=== PATIENT | male | born 1935 | race Caucasian/White ===

== ENCOUNTER 2018-06-16 09:01 | Inpatient (IN) | payer OTHER ==
[~2018-06-16] VITALS: Ht 180.3 cm; Wt 74.8 kg
--- NOTE | 2018-06-16 09:34 | ED CARDIAC/CP/PALPITATIONS ---
History of Present Illness General Chief Complaint: Chest Pain Stated Complaint: CP/SLURRED SPEECH RESOLVED Source: patient, family Exam Limitations: no limitations Vital Signs & Intake/Output Vital Signs & Intake/Output Vital Signs Date Time Temp Pulse Resp B/P B/P Pulse O2 O2 Flow FiO2 Mean Ox Delivery Rate 06/16 1301 98.6 92 18 120/74 95 Room Air 06/16 1033 95 06/16 0954 98 Room Air 06/16 0921 98.0 81 16 168/77 96 Room Air Allergies Coded Allergies: No Known Allergies (06/16/18) Reconcile Medications Albuterol Sulfate (Proair Hfa) 90 MCG HFA.AER.AD 2 PUF INH Q4-6 PRN PRN SHORTNESS OF BREATH (Reported) Aspirin (Ecotrin*) 325 MG TABLET.DR 1 TAB PO DAILY HEART HEALTH (Reported) Atorvastatin Calcium (Lipitor) 80 MG TABLET 1 TAB PO DAILY CHOLESTEROL ( Reported) Cyanocobalamin (Vitamin B-12) 1,000 MCG TABLET 1 TAB PO DAILY VITAMIN SUPPORT (Reported) Furosemide 40 MG TABLET 1 TAB PO BID WATER RETENTION (Reported) Multivitamin (Daily Multiple Vitamin) 1 EACH TABLET 1 TAB PO DAILY VITAMIN SUPPORT (Reported) Sacubitril/Valsartan (Entresto 24 MG-26 MG Tablet) 24 MG-26 MG TABLET 1 TAB PO BID HEART (Reported) Sitagliptin Phosphate (Januvia) 50 MG TABLET 1 TAB PO DAILY DIABETES ( Reported) Sodium Bicarbonate 650 MG TABLET 1 TAB PO BID SUPPLEMENT (Reported) Tiotropium [place] (Spiriva) 18 MCG CAP.W.DEV 1 CAP INH DAILY BREATHING PROBLEMS (Reported) Triage Note: 83M TO ED WITH INDIGESTION IN HIS THROAT THAT WOKE HIM FROM HIS SLEEP. TOOK ROLAIDS WITH MINIMAL RELIEF. DENIES ACTIVE CP OR DISCOMFORT AT THIS TIME. ANXIOUS AND TEARFUL. IS SUPPOSED TO BE ON CPAP AT ALL TIMES BUT NON-COMPLIANT. O2 SAT 96% ON ROOM AIR. STATES IT FEELS TIGHT TO BREATH. DENIES COUGH. TRACE EDEMA TO BLE. +FATIGUE AND WEAKNESS. SPEECH CLEAR AND ORGANIZED , [facility] Triage Nurses Notes Reviewed? yes Onset: Abrupt Duration: day(s): (1), changing over time, continues in ED Timing: single episode today Quality/Severity: moderate Location: central Radiation: no radiation Activities at Onset: activity (BENDING DOWN) Prior Chest Pain/Card Workup: CABG Modifying Factors: Worsens With: movement. Nitro Today/Relief: no nitro taken today Aspirin Today: no aspirin today Associated Symptoms: dizziness, shortness of breath, weakness HPI: 83-year-old male history of hypertension, CKD and hyperlipidemia coronary artery disease diabetes and COPD, status post pacemaker, status post aortic valve replacement, status post CABG presents for evaluation of weakness, dizziness, shortness of breath and chest tightness. Patient reports due to his usual state of health until he went outside to walk his dog. 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 He denies actually lose consciousness. His reports that at this time he also had slurred speech. He reports shortly after this he developed chest tightness and shortness of breath. Symptoms are worse on exertion is also dizzy on exertion. He reports he never had these symptoms before. Usually he is able to walk withOUT any assistance and is independent. He REPEATDLLY says "do not let me I felt like I was going to ". No hemoptysis lower extremity edema recent surgery or recent trauma. No changes in vision. (Grant Farley) Past History Medical History Any Pertinent Medical History? see below for history Surgical History Surgical History: non-contributory Psychosocial History What is your primary language Honduran Family History Hx Contributory? No (Grant Farley) Review of Systems Review of Systems Constitutional: Reports: malaise, weakness. EENTM: Reports: no symptoms. Respiratory: Reports: see HPI, cough, short of breath. Cardiovascular: Reports: see HPI, chest pain. GI: Reports: no symptoms. Genitourinary: Reports: no symptoms. Musculoskeletal: Reports: no symptoms. Skin: Reports: no symptoms. Neurological/Psychological: Reports: see HPI (DIZZY), anxiety. Hematologic/Endocrine: Reports: no symptoms. Immunologic/Allergic: Reports: no symptoms. All Other Systems: Reviewed and Negative (Grant Farley) Physical Exam Physical Exam General Appearance: well developed/nourished, alert, awake, anxious, mild distress, TEARFUL Head: atraumatic, normal appearance Eyes: Bilateral: normal appearance, PERRL, EOMI. Ears, Nose, Throat: normal pharynx, normal ENT inspection, hearing grossly normal Neck: normal inspection, supple, full range of motion Respiratory: chest non-tender, no respiratory distress, decreased breath sounds, wheezing Cardiovascular: regular rate/rhythm, normal peripheral pulses Peripheral Pulses: 2+ radial (R), 2+ radial (L) Gastrointestinal: soft, non-tender Back: normal inspection, normal range of motion, no vertebral tenderness Extremities: normal inspection, normal range of motion, no edema Neurologic/Psych: no motor/sensory deficits, awake, alert, oriented x 3, depressed affect Skin: intact, normal color, warm/dry Lymphatic: no anterior cervical murali Core Measures ACS in differential dx? Yes CVA/TIA Diagnosis No Sepsis Present: No Sepsis Focused Exam Completed? No (Vineet SWANN,Grant) Progress Differential Diagnosis: AMI, aortic dissection, atrial fibrillation, cholecystitis, CHF/pulm edema, hyperkalemia, pancreatitis, pericarditis, pneumonia, pneumothorax, PSVT, pulmonary embolism, PUD/GERD, PVCs/PACs, unstable angina, V-fib/V-Tach, WPW syndrome Plan of Care: Orders Procedure Date/time Status Heart Healthy Diet 06/16 D Active Patient Data 06/16 1430 Active ED Holding Orders 06/16 1417 Active Admit to inpatient 06/16 1417 Active Vital Signs 06/16 1417 Active Code Status 06/16 1417 Active TROPONIN LEVEL 06/16 1245 Complete EKG 06/16 1245 Active Add-on Test (ER Only) 06/16 1052 Active Add-on Test (ER Only) 06/16 0935 Active MAGNESIUM 06/16 0926 Complete LACTIC ACID 06/16 0926 Complete B-TYPE NATRIURETIC PEP (BNP) 06/16 0926 Complete URINALYSIS 06/16 0904 Complete TROPONIN LEVEL 06/16 0904 Complete PARTIAL THROMBOPLASTIN TIME 06/16 0904 Complete PROTHROMBIN TIME 06/16 0904 Complete COMPREHENSIVE METABOLIC PANEL 06/16 0904 Complete CBC WITHOUT DIFFERENTIAL 06/16 0904 Complete EKG 06/16 0904 Active Laboratory Tests 06/16/18 1254: Urine Color YEL, Urine Clarity CLEAR, Urine pH 6.0, Ur Specific [place] 1.020, Urine Protein 100 H, Urine Ketones NEG, Urine Nitrite NEG, Urine Bilirubin NEG, Urine Urobilinogen 0.2, Ur Leukocyte Esterase NEG, Ur Microscopic SEDIMENT EXAMINED, Urine RBC RARE, Urine WBC RARE, Ur Epithelial Cells RARE, Urine Mucus FEW, Urine Hemoglobin NEG, Urine Glucose NEG 06/16/18 1248: Troponin I 0.01 06/16/18 0926: Lactic Acid 0.6 L 06/16/18 0926: Anion Gap 8, Estimated GFR 25 L, BUN/Creatinine Ratio 20.4, Glucose 122 H, Calcium 8.8, Magnesium 2.1, Total Bilirubin 0.5, AST 32, ALT 39, Alkaline Phosphatase 62, Troponin I 0.02, Rgo-S-Ikonkyjpdlk Pept 4100 H, Total Protein 6.5, Albumin 3.6, Globulin 2.9, Albumin/Globulin Ratio 1.2, PT 11.4, INR 1.05, APTT 34, CBC w Diff NO MAN DIFF REQ, RBC 4.08 L, MCV 89.0, MCH 30.0, MCHC 33.7, RDW 14.9 H, MPV 8.3, Gran % 61.8, Lymphocytes % 23.0, Monocytes % 8.8, Eosinophils % 5.9 H, Basophils % 0.5, Absolute Granulocytes 5.4, Absolute Lymphocytes 2.0, Absolute Monocytes 0.8 H, Absolute Eosinophils 0.5, Absolute Basophils 0 Patient is here for evaluation of acute onset dizziness presyncope weakness chest tightness and shortness of breath. He was feeling well until he bent over and he felt symptoms come on suddenly. Patient arrives in significant distress. He states on multiple occasions I felt like I was going to please DOPNT LET me . On exam his vitals are stable. He does have wheezing and decreased breath sounds. DuoNeb was ordered. Labs chest x-ray EKGs ordered. Blood work is not significantly changed. The proBNP is elevated but he has no pulmonary or peripheral edema. Patient is feeling better after DuoNeb. Head CT is negative chest x-ray is clear bowel signs remained stable. A repeat EKG and troponin are negative and unchanged. The initial plan was to have patient go home after the 2 sets however on reevaluation patient reports he is now feeling dizzy and weak again. He was unable to ambulate due to the weakness. When he stood up in the bed he felt he was going to pass out again. Patient will be admitted to the hospital for further evaluation and treatment of weakness chest pain and presyncope. Case discussed with Dr. HUERTA he agrees. Patient will require telemetry, serial labs, serial EKGs, cardiology, DuoNeb's, case management, physical therapy. Diagnostic Imaging: Viewed by Me: Radiology Read. Discussed w/RAD: Radiology Read. Radiology Impression: PATIENT: LANE ESPINAL PRESENT AGE: 83 PATIENT ACCOUNT NO: [id number] : 34 LOCATION: [facility] ([place] ORDERING PHYSICIAN: Grant SWANN SERVICE DATE: 06/16/18 EXAM TYPE: RAD - XRY-CHEST XRAY, TWO VIEWS EXAMINATION: XR CHEST CLINICAL INFORMATION: Chest pain. COMPARISON: 10/27/2007. TECHNIQUE: 2 views of the chest were obtained. FINDINGS: Left subclavian AICD with leads in right atrium, right ventricle, and right coronary sinus. Median sternotomy. AVR, question CABG. Cardiomediastinal silhouette within normal limits and stable when compared to prior. Lungs well expanded and clear with no consolidation or effusion. IMPRESSION: No acute cardiopulmonary findings. DICTATED BY: Spencer Urbina MD DATE/TIME DICTATED:1015 GRADING CLERK:HELENA DATE/TIME TRANSCRIBED:06/16/181015 CONFIDENTIAL, DO NOT COPY WITHOUT APPROPRIATE AUTHORIZATION. <Electronically signed in Other Vendor System> SIGNED BY: Spencer Urbina MD 06/16/18 1020, PATIENT: LANE ESPINAL PRESENT AGE: 83 PATIENT ACCOUNT NO: [id number] : 34 LOCATION: [facility] ([place] ORDERING PHYSICIAN: Grant SWANN SERVICE DATE: 06/16/18 EXAM TYPE: CAT - CT HEAD WO IV CONTRAST EXAMINATION: CT HEAD WITHOUT CONTRAST CLINICAL INFORMATION: Slurred speech and dizziness. Assess for intracranial hemorrhage or mass. COMPARISON: CT scan of the head 04/17/2015. TECHNIQUE: Contiguous axial imaging was performed from the skull base to vertex without intravenous administration of contrast. DLP: 695.42 mGy-cm FINDINGS: There is no evidence of acute intracranial hemorrhage or territorial infarction. No abnormal mass effect or midline shift is seen. Henao to white matter differentiation is well preserved. No extra-axial fluid collections are identified. The ventricles and sulci are commensurately prominent consistent with kiqd-wa-tktikgtl diffuse volume loss. The study redemonstrates sequelae of a chronic infarct in the left precentral gyrus. The sequelae of the high right frontoparietal chronic infarct are unchanged. Low attenuation is noted in the periventricular white matter consistent with chronic microvascular ischemic changes. There are lacunar infarcts versus prominent perivascular spaces in the basal ganglia bilaterally. There is a chronic lacunar infarct in the right thalamus. There are no acute osseous findings. The soft tissues are unremarkable. There are atheromatous calcifications of the cavernous internal carotid arteries. The visualized mastoid air cells are well-aerated. There is mild mucoperiosteal thickening in the bilateral maxillary sinuses. The nasal septum is deviated to the right. IMPRESSION: 1. There are no acute bleeds or territorial infarcts. No masses are demonstrated. 2. There is diffuse volume loss and there are sequelae of chronic bilateral infarcts as described above. DICTATED BY: Sergey George MD DATE/TIME DICTATED:06/16/181037 GRADING CLERK :HELENA DATE/TIME TRANSCRIBED:06/16/181037 CONFIDENTIAL, DO NOT COPY WITHOUT APPROPRIATE AUTHORIZATION. <Electronically signed in Other Vendor System> SIGNED BY: Sergey George MD 06/16/18 1046 Initial ED EKG: AV DUAL PACED COMPLEXES WITH INHIBITION Repeat EKG: unchanged (Grant Farley) Departure Departure Disposition: STILL A PATIENT Condition: Stable Clinical Impression Primary Impression: Weakness Secondary Impressions: Chest pain Qualifiers: Chest pain type: unspecified Qualified Code: R07.9 - Chest pain, unspecified Pre-syncope Referrals: Wilfredo Sarmiento MD (PCP/Family) Departure Forms: Customer Survey General Discharge Information Admission Note Spoke With: Jb Ashraf MD Documentation of Exam: Documentation of any treatments & extenuating circumstances including Concerns Regarding Discharge (functional status, medication knowledge or non-compliance, living conditions, etc.) that warrant an admission rather than observation: [PT IS UNABLE TO AMBULATE, WILL REQUIRE TELE, SERIAL labs serial EKGs physical therapy case management DuoNeb CARDIOLOGY, PULM] (Grant Farley) PA/MAMMAL CONTROL AGENT Co-Sign Statement Statement: ED Attending supervision documentation- [X] I saw and evaluated the patient. I have also reviewed all the pertinent lab results and diagnostic results. I agree with the findings and the plan of care as documented in the PA's/MAMMAL CONTROL AGENT's documentation. [X] I have reviewed the ED Record and agree with the PA's/MAMMAL CONTROL AGENT's documentation. [] Additions or exceptions (if any) to the PAs/MAMMAL CONTROL AGENT's note and plan are summarized below: [Patient to be admitted for increasing weakness and fatigue and unable to care for himself at home. Patient is very unsteady on his feet and is unable to do his own ADLs. Patient would be at high risk if he were discharged.] (Lisandro BOONE,Brooks Hampton) Critical Care Note Critical Care Note Critical Care Time: 30-74 min (Grant Farley)
[2018-06-16 09:44] LABS: ABSOLUTE BASOPHIL COUNT 0 /CUMM (0.0-0.2); ABSOLUTE EOSINOPHIL COUNT 0.5 /CUMM (0.0-0.7); ABSOLUTE GRANULOCYTE CT 5.4 /CUMM (1.4-6.5); ABSOLUTE MONOCYTE COUNT 0.8 /CUMM (0.10-0.60); BASOPHIL % 0.5 % (0.0-2.0); EOSINOPHIL % 5.9 % (0-5); GRANULOCYTE % 61.8 % (42.2-75.2); HEMATOCRIT 36.3 % (42-52); MEAN CORPUSCULAR HGB CONC 33.7 G/DL (33.0-37.0); MEAN PLATELET VOLUME 8.3 FL (7.4-10.4); PLATELET COUNT 187 /CUMM (130-400); RBC DISTRIBUTION WIDTH 14.9 % (11.5-14.5); RED BLOOD CELL CT 4.08 /CUMM (4.70-6.10); WHITE BLOOD CELL COUNT 8.8 /CUMM (4.8-10.8)
[2018-06-16 09:46] LABS: PT 11.4 SEC (9.4-12.5); PTT 34 SEC (25-37)
--- NOTE | 2018-06-16 10:20 | RADIOLOGY REPORT ---
EXAMINATION: XR CHEST CLINICAL INFORMATION: Chest pain. COMPARISON: 10/27/2007. TECHNIQUE: 2 views of the chest were obtained. FINDINGS: Left subclavian AICD with leads in right atrium, right ventricle, and right coronary sinus. Median sternotomy. AVR, question CABG. Cardiomediastinal silhouette within normal limits and stable when compared to prior. Lungs well expanded and clear with no consolidation or effusion. IMPRESSION: No acute cardiopulmonary findings.
[2018-06-16] MEDS ORDERED: ASPIRIN EC325 M2 PO (10:38)
[2018-06-16] MEDS ORDERED: FUROSEMIDE40 M1 PO (10:39)
[2018-06-16] MEDS ORDERED: LIPITOR80 M1 PO (10:39)
[2018-06-16] MEDS ORDERED: ENTRESTO 24 MG1 EACH PO (10:39)
[2018-06-16] MEDS ORDERED: VITAMIN B-121000 MC3 PO (10:40)
[2018-06-16] MEDS ORDERED: JANUVIA50 M1 PO (10:40)
[2018-06-16] MEDS ORDERED: DAILY MULTIPLE1 EACH PO (10:40)
[2018-06-16] MEDS ORDERED: SODIUM BICARBO650 M1 PO (10:41)
[2018-06-16] MEDS ORDERED: PROAIR HFA8.5 GM INH (10:41)
[2018-06-16] MEDS ORDERED: SPIRIVA18 MCG INH (10:41)
--- NOTE | 2018-06-16 10:46 | CT SCAN REPORT ---
EXAMINATION: CT HEAD WITHOUT CONTRAST CLINICAL INFORMATION: Slurred speech and dizziness. Assess for intracranial hemorrhage or mass. COMPARISON: CT scan of the head 04/17/2015. TECHNIQUE: Contiguous axial imaging was performed from the skull base to vertex without intravenous administration of contrast. DLP: 695.42 mGy-cm FINDINGS: There is no evidence of acute intracranial hemorrhage or territorial infarction. No abnormal mass effect or midline shift is seen. Henao to white matter differentiation is well preserved. No extra-axial fluid collections are identified. The ventricles and sulci are commensurately prominent consistent with aewq-ac-gqghctkk diffuse volume loss. The study redemonstrates sequelae of a chronic infarct in the left precentral gyrus. The sequelae of the high right frontoparietal chronic infarct are unchanged. Low attenuation is noted in the periventricular white matter consistent with chronic microvascular ischemic changes. There are lacunar infarcts versus prominent perivascular spaces in the basal ganglia bilaterally. There is a chronic lacunar infarct in the right thalamus. There are no acute osseous findings. The soft tissues are unremarkable. There are atheromatous calcifications of the cavernous internal carotid arteries. The visualized mastoid air cells are well-aerated. There is mild mucoperiosteal thickening in the bilateral maxillary sinuses. The nasal septum is deviated to the right. IMPRESSION: 1. There are no acute bleeds or territorial infarcts. No masses are demonstrated. 2. There is diffuse volume loss and there are sequelae of chronic bilateral infarcts as described above.
--- NOTE | 2018-06-16 15:01 | History & Physical ---
General Information and HPI MD Statement: I have seen and personally examined LANE ESPINAL and documented this H& P. The patient is a 83 year old M who presented with a patient stated chief complaint of [chest pain and slurred speech]. Source of Information: patient, family, old records Exam Limitations: no limitations History of Present Illness: Patient is an 83-year-old male presents for evaluation of weakness, dizziness, blurry vision, fogging in eyes and chest tightness. History of present illness- According to the patient he was completely all right in the morning. He took his dog out for a walk. 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 He went home and woke up his and told that I am going to , I do want to . woke up and felt that his speech is slurred so she brought him here. Patient was also complaining of slight tightness in the chest during this episode but denies for any chest pressure, palpitation, shortness of breath, fall. His first 2 sets of troponins and EKGs were negative. He tried to walk with the nurse in the ED but felt slight dizzy so it was decided to admit him into telemetry for further cardiac evaluation. Past medical history- Hypertension Hyperlipidemia History of multiple CVA, last episode 2months ago - at [facility], f/u MRI showed minor infarct. Coronary disease,status post bovine aortic valve ( 11/03/2006),not on anticoagulation, status post CABG s/p ICD/Pacemaker Chronic kidney disease. Type 2 diabetes. COPD Personal history -lives with the primary, with the , can do all his daily activity without any assistance. Allergies/Medications Allergies: Coded Allergies: No Known Allergies (06/16/18) Home Med list Albuterol Sulfate (Proair Hfa) 90 MCG HFA.AER.AD 2 PUF INH Q4-6 PRN PRN SHORTNESS OF BREATH (Reported) Aspirin (Ecotrin*) 325 MG TABLET.DR 1 TAB PO DAILY HEART HEALTH (Reported) Atorvastatin Calcium (Lipitor) 80 MG TABLET 1 TAB PO DAILY CHOLESTEROL ( Reported) Cyanocobalamin (Vitamin B-12) 1,000 MCG TABLET 1 TAB PO DAILY VITAMIN SUPPORT (Reported) Furosemide 40 MG TABLET 1 TAB PO BID WATER RETENTION (Reported) Multivitamin (Daily Multiple Vitamin) 1 EACH TABLET 1 TAB PO DAILY VITAMIN SUPPORT (Reported) Sacubitril/Valsartan (Entresto 24 MG-26 MG Tablet) 24 MG-26 MG TABLET 1 TAB PO BID HEART (Reported) Sitagliptin Phosphate (Januvia) 50 MG TABLET 1 TAB PO DAILY DIABETES ( Reported) Sodium Bicarbonate 650 MG TABLET 1 TAB PO BID SUPPLEMENT (Reported) Tiotropium [place] (Spiriva) 18 MCG CAP.W.DEV 1 CAP INH DAILY BREATHING PROBLEMS (Reported) Past History Travel History Traveled to [place] past 21 day Yes Medical History Neurological: CVA Cardiovascular: AORTIC VALVE REPLACEMENT PACER Endocrine: diabetes Surgical History Surgical History: non-contributory Review of Systems Review of Systems Constitutional: Denies: no symptoms. Exam & Diagnostic Data Last 24 Hrs of Vital Signs/I&O Vital Signs Date Time Temp Pulse Resp B/P B/P Pulse O2 O2 Flow FiO2 Mean Ox Delivery Rate 06/16 2248 97.7 74 18 138/74 94 Room Air 06/16 1622 97.8 75 18 138/75 98 Room Air 06/16 1301 98.6 92 18 120/74 95 Room Air 06/16 1033 95 06/16 0954 98 Room Air 06/16 0921 98.0 81 16 168/77 96 Room Air Intake & Output 06/17 0800 06/17 0000 06/16 1600 Intake Total 360 0 Output Total Balance 360 0 Intake, Oral 360 0 Number 1 Bowel Movements Patient 77.564 kg 74.843 kg Weight Weight Bed scale Measurement Method Physical Exam General Appearance Alert, Oriented X3, Cooperative, No Acute Distress Neck No JVD Cardiovascular Normal S1, Normal S2, murmure present, left upper chest pacemaker pocket is present with defibrillator Lungs Clear to Auscultation, Normal Air Movement Abdomen Soft, No Tenderness Neurological Normal Speech, Strength at 5/5 X4 Ext, Normal Tone, Sensation Intact Extremities No Clubbing, No Cyanosis, No Edema Vascular Normal Pulses, Pulses Symmetrical Last 24 Hrs of Labs/Jaswinder: Laboratory Tests 06/16/18 1254: Urine Color YEL, Urine Clarity CLEAR, Urine pH 6.0, Ur Specific [place] 1.020, Urine Protein 100 H, Urine Ketones NEG, Urine Nitrite NEG, Urine Bilirubin NEG, Urine Urobilinogen 0.2, Ur Leukocyte Esterase NEG, Ur Microscopic SEDIMENT EXAMINED, Urine RBC RARE, Urine WBC RARE, Ur Epithelial Cells RARE, Urine Mucus FEW, Urine Hemoglobin NEG, Urine Glucose NEG 06/16/18 1248: Troponin I 0.01 06/16/18 0926: Lactic Acid 0.6 L 06/16/18 0926: Anion Gap 8, Estimated GFR 25 L, BUN/Creatinine Ratio 20.4, Glucose 122 H, Calcium 8.8, Magnesium 2.1, Total Bilirubin 0.5, AST 32, ALT 39, Alkaline Phosphatase 62, Troponin I 0.02, Wci-Z-Uwiappckgnu Pept 4100 H, Total Protein 6.5, Albumin 3.6, Globulin 2.9, Albumin/Globulin Ratio 1.2, Free T4 1.22, Total T3 0.77 L, TSH &T3 &Free T4 Intrp 13.100 H, PT 11.4, INR 1.05, APTT 34, CBC w Diff NO MAN DIFF REQ, RBC 4.08 L, MCV 89.0, MCH 30.0, MCHC 33.7, RDW 14.9 H, MPV 8.3, Gran % 61.8, Lymphocytes % 23.0, Monocytes % 8.8, Eosinophils % 5.9 H, Basophils % 0.5, Absolute Granulocytes 5.4, Absolute Lymphocytes 2.0, Absolute Monocytes 0.8 H, Absolute Eosinophils 0.5, Absolute Basophils 0 Diagnostic Data EKG Results Paced rhythum CXR Results No acute cardiopulmonary findings. Assessment/Plan Assessment: Patient is an 83-year-old male presents for evaluation of weakness, dizziness, blurry vision, fogging in eyes and chest tightness. Vital signs at the time of admission-temperature 98.0, pulse 81, respiratory rate 16, blood pressure 168/77, SPO2 96% on room air. Blood workup-hemoglobin 12.2, hematocrit 36.3, platelet 187, granulocyte 61.8, sodium 139, potassium 4.5, chloride 106, carbon dioxide 25, anion gap 8, BUN 51, creatinine 2.5, glucose 122, lactic acid 0.6, calcium 8.8, magnesium 2.1, total bilirubin 0.5, AST 32, ALT 39, alkaline phosphatase 62, troponin I 0.02, proBNP 4100, total protein 6.5, albumin 3.6, TSH 13, free T3 0.77, Assessment and plan- Dizziness and blurry vision - TIA/CVA or Decreased cardiac output * Admit the patient to telemetry floor * Consult cardiology - Dr. Don * Neuro check * follow neurologic rcms * Vital check every shift. * orthostatic vitals * We will continue all home medication * Echo, carotid doppler Hypothyroidism - TSH -17, t3-0.77 * We will discuss to strat patient on thyroid supplementation Diet-heart healthy diet CODE STATUS-DNR/DNI DVT prophylaxis-EMPERATRIZ/heparin As Ranked By This Provider Problem List: 1. Pre-syncope 2. Chest pain Qualifiers Chest pain type: unspecified Qualified Code: R07.9 - Chest pain, unspecified 3. Weakness Core Measures/Misc (07/17) Acute Coronary Syndrome ACS Diagnosis: No Congestive Heart Failure Congestive Heart Failure Diagnosis No Cerebrovascular Accident CVA/TIA Diagnosis: No VTE (View Protocol) VTE Risk Factors Age>40 No Mechanical VTE Prophylaxis d/t N/A MechProphylax Ordered No VTE Pharm Prophylaxis d/t NA PharmProphylax ordered Sepsis (View protocol) Sepsis Present: No If YES complete Sepsis Event Note If YES complete Sepsis Event Note
--- NOTE | 2018-06-16 17:12 | Cons- Neurology ---
General Information and HPI Consulting Request Date of Consult: 06/16/18 Requested By: Jb Ashraf MD Reason for Consult: Possible TIA Source of Information: patient, family Exam Limitations: no limitations History of Present Illness: 83-year-old man with an extensive cardiac history and a known CVA in 2006 at the time of cardiac surgery as well as another CVA found incidentally on CT scans became ill walking his dog this AM. The initial symptom was chest pain followed by blurring of vision in both eyes, lightheadedness leading him to sit down, diaphoresis and slurring of speech lasting around 10 minutes according to family. There were no lateralized complaints such as weakness, clumsiness or numbness on either the left or right side. Prior similar episodes of dizziness have occurred and they were told these were TIAs. Now comfortable, no pain, no further lightheadedness, speech clear. Allergies/Medications Allergies: Coded Allergies: No Known Allergies (06/16/18) Home Med List: Albuterol Sulfate (Proair Hfa) 90 MCG HFA.AER.AD 2 PUF INH Q4-6 PRN PRN SHORTNESS OF BREATH (Reported) Aspirin (Ecotrin*) 325 MG TABLET.DR 1 TAB PO DAILY HEART HEALTH (Reported) Atorvastatin Calcium (Lipitor) 80 MG TABLET 1 TAB PO DAILY CHOLESTEROL ( Reported) Cyanocobalamin (Vitamin B-12) 1,000 MCG TABLET 1 TAB PO DAILY VITAMIN SUPPORT (Reported) Furosemide 40 MG TABLET 1 TAB PO BID WATER RETENTION (Reported) Multivitamin (Daily Multiple Vitamin) 1 EACH TABLET 1 TAB PO DAILY VITAMIN SUPPORT (Reported) Sacubitril/Valsartan (Entresto 24 MG-26 MG Tablet) 24 MG-26 MG TABLET 1 TAB PO BID HEART (Reported) Sitagliptin Phosphate (Januvia) 50 MG TABLET 1 TAB PO DAILY DIABETES ( Reported) Sodium Bicarbonate 650 MG TABLET 1 TAB PO BID SUPPLEMENT (Reported) Tiotropium [place] (Spiriva) 18 MCG CAP.W.DEV 1 CAP INH DAILY BREATHING PROBLEMS (Reported) Current Medications: Current Medications Sig/Deni Start time Last Medication Dose Route Stop Time Status Admin Albuterol Sulfate 3 ML ONCE ONE 06/16 945 DC 06/16 INH 06/16 0946 1032 Ipratropium [place] 2.5 ML ONCE ONE 06/16 945 DC 06/16 INH 08/17 0946 1032 Review of Systems Review of Systems: hard of hearing. otherwise the complete medical ROS is negative or non- contributory Past History Travel History Traveled to [place] past 21 day Yes Medical History Neurological: CVA Cardiovascular: AORTIC VALVE REPLACEMENT PACER Endocrine: diabetes Surgical History Surgical History: non-contributory, Cardiac Psychosocial History Smoking Status: Unknown If Ever Smoked Exam & Diagnostic Data Vital Signs and I&O Vital Signs Date Time Temp Pulse Resp B/P B/P Pulse O2 O2 Flow FiO2 Mean Ox Delivery Rate 06/16 1622 97.8 75 18 138/75 98 Room Air 06/16 1301 98.6 92 18 120/74 95 Room Air 06/16 1033 95 06/16 0954 98 Room Air 06/16 0921 98.0 81 16 168/77 96 Room Air Intake & Output 06/16 1600 06/16 0800 06/16 0000 Intake Total 0 Output Total Balance 0 Intake, Oral 0 Patient 165 lb Weight Physical Exam: Alert, oriented, seech and language clear VFF, EOMI, P4ERRL lower cranial nerves normal except assymetry of NLF at rest, decreased on the right motor power and tone normal DTRs symmetric, no pathological reflexes coordination impaired, dyspraxia of finger control L>R sensory exam symmetric gait not tested Last 48 Hours of Lab Results: Laboratory Tests 06/16 06/16 06/16 1254 1248 0926 Chemistry Lactic Acid (0.7 - 2.1 mmol/L) 0.6 L Troponin I (<0.11 ng/ml) 0.01 Urines Urine Color (YEL,AMB,STR) YEL Urine Clarity (CLEAR) CLEAR Urine pH (5.0 - 8.0) 6.0 Ur Specific [place] (1.001 - 1.035) 1.020 Urine Protein (NEG,<30 MG/DL) 100 H Urine Ketones (NEG) NEG Urine Nitrite (NEG) NEG Urine Bilirubin (NEG) NEG Urine Urobilinogen (0.1 - 1.0 EU/dl) 0.2 Ur Leukocyte Esterase (NEG) NEG Ur Microscopic SEDIMENT EXAMINED Urine RBC (0 - 5 /HPF) RARE Urine WBC (0 - 2 /HPF) RARE Ur Epithelial Cells (NONE,FEW) RARE Urine Mucus (FEW,NONE) FEW Urine Hemoglobin (NEG) NEG Urine Glucose (N MG/DL) NEG 06/16 0926 Chemistry Sodium (137 - 145 mmol/L) 139 Potassium (3.5 - 5.1 mmol/L) 4.5 Chloride (98 - 107 mmol/L) 106 Carbon Dioxide (22 - 30 mmol/L) 25 Anion Gap (5 - 16) 8 BUN (9 - 20 mg/dL) 51 H Creatinine (0.7 - 1.2 mg/dL) 2.5 H Estimated GFR (>60 ml/min) 25 L BUN/Creatinine Ratio (7 - 25 %) 20.4 Glucose (65 - 99 mg/dL) 122 H Calcium (8.4 - 10.2 mg/dL) 8.8 Magnesium (1.6 - 2.3 mg/dL) 2.1 Total Bilirubin (0.2 - 1.3 mg/dL) 0.5 AST (17 - 59 U/L) 32 ALT (21 - 72 U/L) 39 Alkaline Phosphatase (< 127 U/L) 62 Troponin I (<0.11 ng/ml) 0.02 Ezr-X-Bgkklfzmorm Pept (<125 pg/mL) 4100 H Total Protein (6.3 - 8.2 g/dL) 6.5 Albumin (3.5 - 5.0 g/dL) 3.6 Globulin (1.9 - 4.2 gm/dL) 2.9 Albumin/Globulin Ratio (1.1 - 2.2 %) 1.2 Free T4 (0.85 - 1.93 ng/dL) 1.22 Total T3 (0.97 - 1.69 ng/mL) 0.77 L TSH &T3 &Free T4 Intrp (0.27 - 4.20 uIU/mL) 13.100 H Coagulation PT (9.4 - 12.5 SEC) 11.4 INR (0.90 - 1.17) 1.05 APTT (25 - 37 SEC) 34 Hematology CBC w Diff NO MAN DIFF REQ WBC (4.8 - 10.8 /CUMM) 8.8 RBC (4.70 - 6.10 /CUMM) 4.08 L Hgb (14.0 - 18.0 G/DL) 12.2 L Hct (42 - 52 %) 36.3 L MCV (80.0 - 94.0 FL) 89.0 MCH (27.0 - 31.0 PG) 30.0 MCHC (33.0 - 37.0 G/DL) 33.7 RDW (11.5 - 14.5 %) 14.9 H Plt Count (130 - 400 /CUMM) 187 MPV (7.4 - 10.4 FL) 8.3 Gran % (42.2 - 75.2 %) 61.8 Lymphocytes % (20.5 - 51.1 %) 23.0 Monocytes % (1.7 - 9.3 %) 8.8 Eosinophils % (0 - 5 %) 5.9 H Basophils % (0.0 - 2.0 %) 0.5 Absolute Granulocytes (1.4 - 6.5 /CUMM) 5.4 Absolute Lymphocytes (1.2 - 3.4 /CUMM) 2.0 Absolute Monocytes (0.10 - 0.60 /CUMM) 0.8 H Absolute Eosinophils (0.0 - 0.7 /CUMM) 0.5 Absolute Basophils (0.0 - 0.2 /CUMM) 0 Imaging/Other Studies: CT Head: The ventricles and sulci are commensurately prominent consistent with affo-hn-xizktubq diffuse volume loss. The study redemonstrates sequelae of a chronic infarct in the left precentral gyrus. The sequelae of the high right frontoparietal chronic infarct are unchanged. Low attenuation is noted in the periventricular white matter consistent with chronic microvascular ischemic changes. There are lacunar infarcts versus prominent perivascular spaces in the basal ganglia bilaterally. There is a chronic lacunar infarct in the right thalamus. Assessment/Plan Assessment: Doubt this event was a TIA Symptoms suggest Generalized cerebral hypoperfusion with visual blurring, lightheaded dizziness in the setting of chest pain. Patient already on ASA and a Statin Recommendations: cardiac monitoring and consultation carotid dopplers reasonable to assess degree of atherosclerosis echo or other cardiac eval as per recruitment consultant continue current meds for now call back if can be of further assistance Consult Acknowledgment - Thank you for your consult request.
--- NOTE | 2018-06-16 17:26 | Admission Certification ---
Admission Certification Certification Statement - As attending physician, I certify that at the time of - admission, based on clinical presentation, severity of - symptoms, need for further diagnostic testing and - therapeutic interventions, and risk of adverse outcomes - without in-hospital treatment, in my clinical assessment, - this patient requires an acute hospital stay for a minimum - of two nights or longer. I have also considered psychsocial - factors such as support system, advanced age, financial - issues, cognitive issues, and failed out-patient treatments, - past re-admission history, safety of patient, and lack of - compliance as applicable. Specific rationale supporting this admission is: Weakness dizziness chest pain in a patient with extensive coronary artery disease and history of CVAs
--- NOTE | 2018-06-16 17:32 | PN- Att Addend ---
Attending Addendum Attending Brief Note 83-year-old white male recently returned to the [place]. This morning he went out to walk the dog and when he came back he felt a little dizzy and weak spells and some chest pain. He called his who was sleeping for help.Came to the ER beng evaluated had CT of head lab work EKG, had neuro consult with Dr Corrigan, also will be seen by cardiology, monitor. Laboratory Tests 06/16/18 1254: Urine Color YEL, Urine Clarity CLEAR, Urine pH 6.0, Ur Specific [place] 1.020, Urine Protein 100 H, Urine Ketones NEG, Urine Nitrite NEG, Urine Bilirubin NEG, Urine Urobilinogen 0.2, Ur Leukocyte Esterase NEG, Ur Microscopic SEDIMENT EXAMINED, Urine RBC RARE, Urine WBC RARE, Ur Epithelial Cells RARE, Urine Mucus FEW, Urine Hemoglobin NEG, Urine Glucose NEG 06/16/18 1248: Troponin I 0.01 06/16/18 0926: Lactic Acid 0.6 L 06/16/18 0926: Anion Gap 8, Estimated GFR 25 L, BUN/Creatinine Ratio 20.4, Glucose 122 H, Calcium 8.8, Magnesium 2.1, Total Bilirubin 0.5, AST 32, ALT 39, Alkaline Phosphatase 62, Troponin I 0.02, Dpa-G-Hcddvayzxac Pept 4100 H, Total Protein 6.5, Albumin 3.6, Globulin 2.9, Albumin/Globulin Ratio 1.2, Free T4 1.22, Total T3 0.77 L, TSH &T3 &Free T4 Intrp 13.100 H, PT 11.4, INR 1.05, APTT 34, CBC w Diff NO MAN DIFF REQ, RBC 4.08 L, MCV 89.0, MCH 30.0, MCHC 33.7, RDW 14.9 H, MPV 8.3, Gran % 61.8, Lymphocytes % 23.0, Monocytes % 8.8, Eosinophils % 5.9 H, Basophils % 0.5, Absolute Granulocytes 5.4, Absolute Lymphocytes 2.0, Absolute Monocytes 0.8 H, Absolute Eosinophils 0.5, Absolute Basophils 0 Vital Signs Date Time Temp Pulse Resp B/P B/P Pulse O2 O2 Flow FiO2 Mean Ox Delivery Rate 06/16 1622 97.8 75 18 138/75 98 Room Air 06/16 1301 98.6 92 18 120/74 95 Room Air 06/16 1033 95 06/16 0954 98 Room Air Intake & Output 06/16 1600 Intake Total 0 Output Total Balance 0 Intake, Oral 0 Patient 165 lb Weight
[2018-06-16 22:48] VITALS: BP 138/74
[2018-06-17 06:23] VITALS: BP 148/78
--- NOTE | 2018-06-17 08:43 | PN- Housestaff ---
Subjective Follow-up For: Dizziness and weakness Subjective: No acute events overnight, afebrile. Patient states he is feeling much better today like nothing is wrong with me. Patient denies weakness, dizziness, shortness of breath, chest pain, palpitations. Denies fever, night sweats, chills Review of Systems Constitutional: Reports: see HPI. Objective Last 24 Hrs of Vital Signs/I&O Vital Signs Date Time Temp Pulse Resp B/P B/P Pulse O2 O2 Flow FiO2 Mean Ox Delivery Rate 06/17 0623 98.2 75 20 148/78 97 Room Air 06/16 2248 97.7 74 18 138/74 94 Room Air 06/16 1622 97.8 75 18 138/75 98 Room Air 06/16 1301 98.6 92 18 120/74 95 Room Air Intake & Output 06/17 1600 06/17 0800 06/17 0000 Intake Total 200 360 Output Total 600 Balance -400 360 Intake, Oral 200 360 Number 1 Bowel Movements Output, Urine 600 Patient 172 lb Weight Weight Bed scale Measurement Method Physical Exam General Appearance: Alert, Oriented X3, Cooperative Cardiovascular: Regular Rate, Normal S1, Normal S2 Lungs: Clear to Auscultation, Normal Air Movement Abdomen: Normal Bowel Sounds, Soft, No Tenderness Assessment/Plan Assessment: Patient is an 83-year-old male presents for evaluation of weakness, dizziness, blurry vision, fogging in eyes and chest tightness. Assessment and plan- #Right ICA Stenosis: Doppler shows 50-79% stenosis. Could be responsible for patients symptoms -vascular surgery consult #Dizziness and blurry vision - symptoms could be due to generalized cerebral hypoperfusion, symptoms not consistent with TIA/CVA. Patient has history of multiple prior strokes, likely to be embolic in etiology. Patient feels his symptoms have resolved. -Eliquis 2.5mg BID -assess defibrilator for paroxysmal A.fib as cause of hypoperfusion -Echo pending Hypothyroidism - TSH -17, t3-0.77 * will repeat TSH level, as patient is asymptomatic #[place]: creatinine trending down. Possible etiology: hypoperfusion due to cardiac origin vs dehydration. Creatinine is trending down since admission -encourage PO hydration -continue to monitor renal function, if worsens consult nephrology #GERD -Start Omperazole 20mg Diet-heart healthy diet CODE STATUS-DNR/DNI DVT prophylaxis-EMPERATRIZ/heparin Problem List: 1. Weakness Pain Ratin Pain Location: n/a Pain Goal: Remain pain free Pain Plan: tylenol Tomorrow's Labs & Rationales: bep, tsh
--- NOTE | 2018-06-17 11:13 | Patient Discharge Instructions ---
Discharge Instructions General Discharge Information Special Instructions: - Please follow up with your primary care physician within 1-2 weeks of discharge. Inform your primary care physician of this admission to [facility]. - Continue your current medications per discharge instructions. - Please watch for these problems: Fever, Chills, Nausea, Vomiting, Shortness of Breath, Productive Cough, Chest Pain/Discomfort, Abdominal Pain, Active Bleeding or Bloody urine/stool. Diet Continue normal diet: Yes Recommended Diet: Heart Healthy Activity Full Activity/No Limits: Yes Acute Coronary Syndrome Inclusion Criteria At DC or during hospital stay patient has or had the following: ACS DIAGNOSIS No Discharge Core Measures Meds if any: Prescribed or Continued at Discharge Meds if any: NOT Prescribed or Continued at Discharge Congestive Heart Failure Inclusion Criteria At DC or during hospital stay patient has or had the following: CHF DIAGNOSIS No Discharge Core Measures Meds if any: Prescribed or Continued at Discharge Meds if any: NOT Prescribed or Continued at Discharge Cerebrovascular accident Inclusion Criteria At DC or during hospital stay patient has or had the following: CVA/TIA Diagnosis No Discharge Core Measures Meds if any: Prescribed or Continued at Discharge Meds if any: NOT Prescribed or Continued at Discharge Venous thromboembolism Inclusion Criteria VTE Diagnosis No VTE Type NONE VTE Confirmed by (Test) NONE Discharge Core Measures - Per Current guidelines, there needs to be overlap - treatment for the first 5 days of Warfarin therapy. - If discharged on Warfarin prior to 5 days of - overlap therapy, the patient will need to be - assessed for post discharge needs including - *Post discharge parental anticoagulation - *Warfarin and/or parental anticoagulation education - *Follow up date to check INR post discharge At least 5 days overlap therapy as Inpatient No Meds if any: Prescribed or Continued at Discharge Note: Overlap Therapy is Warfarin and Anticoagulant Meds if any: NOT Prescribed or Continued at Discharge
--- NOTE | 2018-06-17 12:18 | PN- Pulmonary ---
Subjective HPI/Critical Care Issues: Doing better this morning Afebrile No further dizziness episode Objective Current Medications: Current Medications Sig/Deni Start time Last Medication Dose Route Stop Time Status Admin Albuterol Sulfate 2 PUF Q4-6 PRN PRN 06/16 2345 AC INH Aspirin Buffered 325 MG DAILY 06/17 900 AC 06/17 PO 0852 Atorvastatin Calcium 80 MG 1700 06/17 1700 AC PO Cyanocobalamin 1,000 MCG DAILY 06/17 900 AC 06/17 PO 0853 Furosemide 40 MG BID 06/17 900 AC 06/17 PO 0852 Multivitamins 1 TAB DAILY 06/17 900 AC 06/17 Therapeutic PO 0853 Sodium Bicarbonate 650 MG BID 06/17 900 AC 06/17 PO 0852 Tiotropium [place] 2 PUF DAILY 06/17 900 AC 06/17 INH 0853 Vital Signs & I&O Last 24 Hrs of Vitals and I&O: Vital Signs Date Time Temp Pulse Resp B/P B/P Pulse O2 O2 Flow FiO2 Mean Ox Delivery Rate 06/17 0623 98.2 75 20 148/78 97 Room Air 06/16 2248 97.7 74 18 138/74 94 Room Air 06/16 1622 97.8 75 18 138/75 98 Room Air 06/16 1301 98.6 92 18 120/74 95 Room Air Intake & Output 06/17 1600 06/17 0800 06/17 0000 Intake Total 200 360 Output Total 600 Balance -400 360 Intake, Oral 200 360 Number 1 Bowel Movements Output, Urine 600 Patient 172 lb Weight Weight Bed scale Measurement Method Impression/Plan Impression/Plan Impression/Plan: Alert, oriented, seech and language clear VFF, EOMI, P4ERRL lower cranial nerves normal except assymetry of NLF at rest, decreased on the right motor power and tone normal DTRs symmetric, no pathological reflexes coordination impaired, dyspraxia of finger control L>R sensory exam symmetric Chest clear Heart S1-S2 is heard Abdominal exam soft bowel sounds are heard IMPRESSION This is a gentleman with previous stroke, no comes in with generalized weakness with signs and symptoms suggestive of cerebral hypoperfusion with visual blurring lightheadedness in the setting of some chest discomfort. Patient is now on aspirin and statin. Atherosclerosis Hypothyroidism History of sleep apnea RECOMMENDATION continue follow-up Neurochecks Carotid ultrasound, telemetry monitoring, echo Recheck TSH and free T4 tomorrow We will follow closely
--- NOTE | 2018-06-17 13:06 | Cons- Cardiology ---
General Information and HPI Consulting Request Date of Consult: 06/17/18 Requested By: Jb Ashraf MD History of Present Illness: Ramos is an 83 year old male with history of hypertension, dyslipidemia, diabetes and coronary artery disease s/p NV. 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 He has also had multiple strokes. Ramos was brought to the ER for evaluation of weakness, dizziness and blurry vision. This was noted while walking his dog after bending over to slat pickler his excrement. Slurred speech was noted by his . He denies chest pain, pressure, tightness, lightheadedness or palpitations but has noted shortness of breath and a worn out feeling with a short walk. Allergies/Medications Allergies: Coded Allergies: No Known Allergies (06/16/18) Home Med List: Albuterol Sulfate (Proair Hfa) 90 MCG HFA.AER.AD 2 PUF INH Q4-6 PRN PRN SHORTNESS OF BREATH (Reported) Aspirin (Ecotrin*) 325 MG TABLET.DR 1 TAB PO DAILY HEART HEALTH (Reported) Atorvastatin Calcium (Lipitor) 80 MG TABLET 1 TAB PO DAILY CHOLESTEROL ( Reported) Cyanocobalamin (Vitamin B-12) 1,000 MCG TABLET 1 TAB PO DAILY VITAMIN SUPPORT (Reported) Furosemide 40 MG TABLET 1 TAB PO BID WATER RETENTION (Reported) Multivitamin (Daily Multiple Vitamin) 1 EACH TABLET 1 TAB PO DAILY VITAMIN SUPPORT (Reported) Sacubitril/Valsartan (Entresto 24 MG-26 MG Tablet) 24 MG-26 MG TABLET 1 TAB PO BID HEART (Reported) Sitagliptin Phosphate (Januvia) 50 MG TABLET 1 TAB PO DAILY DIABETES ( Reported) Sodium Bicarbonate 650 MG TABLET 1 TAB PO BID SUPPLEMENT (Reported) Tiotropium [place] (Spiriva) 18 MCG CAP.W.DEV 1 CAP INH DAILY BREATHING PROBLEMS (Reported) Review of Systems Review of Systems: A 12 point review of systems is remarkable for renal insufficiency and decreased hearing. Past History Travel History Traveled to [place] past 21 day Yes Medical History Blood Transfusion Hx: No Neurological: CVA EENT: [place] Cardiovascular: AORTIC VALVE REPLACEMENT PACER Respiratory: CPAP Renal: KIDNEY ISSUES Endocrine: diabetes Cancer(s): SKIN MELANOMA Surgical History Surgical History: non-contributory, Cardiac Psychosocial History Where Do You Live? Home Smoking Status: Former Smoker Exam & Diagnostic Data Vital Signs and I&O Vital Signs Date Time Temp Pulse Resp B/P B/P Pulse O2 O2 Flow FiO2 Mean Ox Delivery Rate 06/17 0623 98.2 75 20 148/78 97 Room Air 06/16 2248 97.7 74 18 138/74 94 Room Air 06/16 1622 97.8 75 18 138/75 98 Room Air 06/16 1301 98.6 92 18 120/74 95 Room Air Intake & Output 06/17 1600 06/17 0800 06/17 0000 06/16 1600 06/16 0800 06/16 0000 Intake Total 200 360 0 Output Total 600 Balance -400 360 0 Intake, Oral 200 360 0 Number 1 Bowel Movements Output, Urine 600 Patient 172 lb 165 lb Weight Weight Bed scale Measurement Method Physical Exam: General: WD/WN male in NAD; alert and oriented with decreased memory HEENT: NC/AT, PERRL, EOMI Neck: no JVD, no carotid bruit Heart: RRR w/o murmur Lungs: clear bilaterally ABdomen: soft, NT, +ve bowel sounds Extremities: no edema Neuro: right facial droop Assessment/Plan Assessment/Plan * This patient, by report had a major NV 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 I suspect that he has a very low EF but this should be confirmed by obtaining and echocardiogram. * Regardless of whether or not he presents for an acute stroke, this patient has documentation of multiple prior strokes. These are likely embolic in etiology. Consideration needs to be given to a low EF being the nidus for thrombus or atrial fibrillation. It is not known, at present, if this patient had an atrial appendage ligation/resection in the setting of his prior surgery but, even so, this procedure is not known to be 100% reliable. I would begin chronic anticoagulation with Eliquis 2.5mg BID. We will also interogate his defibrillator to assess for paroxysms of atrial fibrillation. Continue low dose aspirin at 81mg daily. * Agree with obtaining carotid ultrasound. * There is no evidence of decompensated CHF or myocardial ischemia at this time but some of his exercise intolerance may be related to a low flow state. Consult Acknowledgment - Thank you for your consult request.
--- NOTE | 2018-06-17 14:02 | PN- Neurology ---
Subjective Subjective: Symptoms have resolved Review of Systems: Tells me there is concern about his pacer defibrillator function which is to be evaluated further Objective Vital Signs and I&Os Vital Signs Date Time Temp Pulse Resp B/P B/P Pulse O2 O2 Flow FiO2 Mean Ox Delivery Rate 06/17 0623 98.2 75 20 148/78 97 Room Air 06/16 2248 97.7 74 18 138/74 94 Room Air 06/16 1622 97.8 75 18 138/75 98 Room Air Intake & Output 06/17 1600 06/17 0806/17 0000 06/16 1600 06/16 0800 06/16 0000 Intake Total 200 360 0 Output Total 600 Balance -400 360 0 Intake, Oral 200 360 0 Number 1 Bowel Movements Output, Urine 600 Patient 172 lb 165 lb Weight Weight Bed scale Measurement Method Physical Exam: Alert, oriented, attentive, no language errors or dysarthria. Very slight lower facial asymmetry which family thinks may be old [place]man equal, no drift Current Medications: Current Medications Sig/Deni Start time Last Medication Dose Route Stop Time Status Admin Albuterol Sulfate 2 PUF Q4-6 PRN PRN 06/16 2345 AC INH Aspirin Buffered 325 MG DAILY 06/17 900 AC 06/17 PO 0852 Atorvastatin Calcium 80 MG 1700 06/17 1700 AC PO Cyanocobalamin 1,000 MCG DAILY 06/17 900 AC 06/17 PO 0853 Furosemide 40 MG BID 06/17 900 AC 06/17 PO 0852 Multivitamins 1 TAB DAILY 06/17 900 AC 06/17 Therapeutic PO 0853 Sodium Bicarbonate 650 MG BID 06/17 900 AC 06/17 PO 0852 Tiotropium [place] 2 PUF DAILY 06/17 900 AC 06/17 INH 0853 Results Last 24 Hours of Lab Results: Laboratory Tests 06/17 0635 Chemistry Sodium (137 - 145 mmol/L) 139 Potassium (3.5 - 5.1 mmol/L) 4.3 Chloride (98 - 107 mmol/L) 111 H Carbon Dioxide (22 - 30 mmol/L) 24 Anion Gap (5 - 16) 4 L BUN (9 - 20 mg/dL) 44 H Creatinine (0.7 - 1.2 mg/dL) 2.2 H Estimated GFR (>60 ml/min) 29 L BUN/Creatinine Ratio (7 - 25 %) 20.0 Magnesium (1.6 - 2.3 mg/dL) 2.1 Troponin I (<0.11 ng/ml) 0.02 Recent Imaging Studies: CT of the head revealed old infarcts, no acute findings Assessment/Plan Assessment: Transient global cerebral ischemia Resolved Further cardiac evaluation underway Plan: Continue current medications unless paroxysmal atrial fibrillation or an alternate cause for cardioembolism found Please call back if further neurologic input is required
[2018-06-17 14:09] VITALS: BP 138/76
--- NOTE | 2018-06-17 15:16 | ULTRASOUND REPORT ---
EXAMINATION: DUPLEX BILATERAL CAROTID ULTRASOUND CLINICAL INFORMATION: Dizziness and weakness COMPARISON: None. TECHNIQUE: Duplex bilateral carotid US was performed using real-time ultrasound and Doppler techniques (integrating B-mode 2D vascular images, Doppler spectral analysis and color flow Doppler imaging). These techniques were utilized to interrogate the extracranial carotid and vertebral arteries bilaterally. The degree of stenosis is based off criteria similar to NASCET. FINDINGS: 1. On the right: There is a hemodynamically significant stenosis correlating to 50-79% diameter reduction of the proximal internal carotid artery. A moderate amount of hyperechoic plaque is noted within the proximal internal and external carotid arteries. The peak systolic and diastolic velocities as measured within the proximal internal carotid artery equals 147 and 24 cm/s respectively. The vertebral artery is patent demonstrating antegrade flow. The right external carotid artery shows no significant stenosis 2. On the left: Plaque is noted within the internal and carotid artery, but velocity measurements are all normal, not suggesting a stenosis of greater than 50% diameter reduction in the left ICA. The vertebral artery is patent demonstrating antegrade flow. The left external carotid artery shows no significant stenosis. IMPRESSION: Hemodynamically significant stenosis in the right internal carotid artery consistent with a 50-79% diameter reduction. On the left, a stenosis of greater than 50% is not present.
[2018-06-17 20:36] VITALS: BP 158/78
[2018-06-18 07:04] VITALS: BP 110/60
--- NOTE | 2018-06-18 12:03 | PN- Pulmonary ---
Subjective HPI/Critical Care Issues: Stable No new issues Objective Current Medications: Current Medications Sig/Deni Start time Last Medication Dose Route Stop Time Status Admin Albuterol Sulfate 2 PUF Q4-6 PRN PRN 06/16 2345 AC INH Apixaban 2.5 MG BID 06/17 2100 AC 06/18 PO 0838 Aspirin Buffered 325 MG DAILY 06/17 0900 AC 06/18 PO 0838 Atorvastatin Calcium 80 MG 1700 06/17 1700 AC 06/17 PO 1722 Cyanocobalamin 1,000 MCG DAILY 06/17 09 AC 06/18 PO 0838 Furosemide 40 MG BID 06/17 09 AC 06/18 PO 0838 Multivitamins 1 TAB DAILY 06/17 09 AC 06/18 Therapeutic PO 0838 Omeprazole 20 MG DAILY AC 06/17 1726 AC 06/18 PO 0634 Sodium Bicarbonate 650 MG BID 06/17 09 AC 06/18 PO 0838 Tiotropium [place] 2 PUF DAILY 06/17 09 AC 06/18 INH 0838 Vital Signs & I&O Last 24 Hrs of Vitals and I&O: Vital Signs Date Time Temp Pulse Resp B/P B/P Pulse O2 O2 Flow FiO2 Mean Ox Delivery Rate 06/18 0704 97.7 75 20 110/60 95 06/17 2036 98.2 77 20 158/78 95 Room Air 06/17 1409 98.4 76 20 138/76 97 Room Air Intake & Output 06/18 1600 06/18 0800 06/18 0000 Intake Total 120 Output Total Balance 120 Intake, Oral 120 Patient 166 lb Weight Laboratory Tests 06/18 06/17 06/16 0615 0635 1254 Chemistry Sodium (137 - 145 mmol/L) 142 139 Potassium (3.5 - 5.1 mmol/L) 5.1 4.3 Chloride (98 - 107 mmol/L) 107 111 H Carbon Dioxide (22 - 30 mmol/L) 28 24 Anion Gap (5 - 16) 7 4 L BUN (9 - 20 mg/dL) 47 H 44 H Creatinine (0.7 - 1.2 mg/dL) 2.3 H 2.2 H Estimated GFR (>60 ml/min) 27 L 29 L BUN/Creatinine Ratio (7 - 25 %) 20.4 20.0 Magnesium (1.6 - 2.3 mg/dL) 2.1 Troponin I (<0.11 ng/ml) 0.02 TSH (0.270 - 4.200 uIU/mL) 18.900 H Urines Urine Color (YEL,AMB,STR) YEL Urine Clarity (CLEAR) CLEAR Urine pH (5.0 - 8.0) 6.0 Ur Specific [place] (1.001 - 1.035) 1.020 Urine Protein (NEG,<30 MG/DL) 100 H Urine Ketones (NEG) NEG Urine Nitrite (NEG) NEG Urine Bilirubin (NEG) NEG Urine Urobilinogen (0.1 - 1.0 EU/dl) 0.2 Ur Leukocyte Esterase (NEG) NEG Ur Microscopic SEDIMENT EXAMINED Urine RBC (0 - 5 /HPF) RARE Urine WBC (0 - 2 /HPF) RARE Ur Epithelial Cells (NONE,FEW) RARE Urine Mucus (FEW,NONE) FEW Urine Hemoglobin (NEG) NEG Urine Glucose (N MG/DL) NEG 06/16 1248 Chemistry Troponin I (<0.11 ng/ml) 0.01 Impression/Plan Impression/Plan Impression/Plan: IMPRESSION: Hemodynamically significant stenosis in the right internal carotid artery consistent with a 50-79% diameter reduction. On the left, a stenosis of greater than 50% is not present. DICTATED BY: Slick Alvarez MD DATE/TIME DICTATED:06/17/181510 Alert, oriented, seech and language clear VFF, EOMI, P4ERRL lower cranial nerves normal except assymetry of NLF at rest, decreased on the right motor power and tone normal DTRs symmetric, no pathological reflexes coordination impaired, dyspraxia of finger control L>R sensory exam symmetric Chest clear Heart S1-S2 is heard Abdominal exam soft bowel sounds are heard IMPRESSION This is a gentleman with previous stroke, no comes in with generalized weakness with signs and symptoms suggestive of cerebral hypoperfusion with visual blurring lightheadedness in the setting of some chest discomfort. Patient is was on aspirin and statin. Atherosclerosis with ihd coronary artery disease s/p [place]. 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 He has also had multiple strokes. Low ef s/avr Hypothyroidism History of sleep apnea Carotid stenosis with stenosis less than 70 percent RECOMMENDATION Continue follow-up/ change to full admission echo / pace maker interogation Add free T4 to his blood work Cont diuresis Will follow closely
--- NOTE | 2018-06-18 13:31 | PN- Cardiology ---
Subjective Subjective: * No complaints. * Interogation of his defibrillator did not show any dysrhythmias or high rate events Objective Vital Signs and I&Os Vital Signs Date Time Temp Pulse Resp B/P B/P Pulse O2 O2 Flow FiO2 Mean Ox Delivery Rate 06/18 0704 97.7 75 20 110/60 95 06/17 2036 98.2 77 20 158/78 95 Room Air 06/17 1409 98.4 76 20 138/76 97 Room Air Intake & Output 06/18 1600 06/18 0806/18 0000 06/17 1600 06/17 0800 06/17 0000 Intake Total 120 700 200 360 Output Total 400 600 Balance 120 300 -400 360 Intake, Oral 120 700 200 360 Number 1 Bowel Movements Output, Urine 400 600 Patient 166 lb 172 lb Weight Weight Bed scale Measurement Method Physical Exam: General: WD/WN male in NAD; alert and oriented with decreased memory HEENT: NC/AT, PERRL, EOMI Neck: no JVD, no carotid bruit Heart: RRR w/o murmur Lungs: clear bilaterally ABdomen: soft, NT, +ve bowel sounds Extremities: no edema Neuro: right facial droop Assessment/Plan Assessment/Plan * This patient, by report had a major FL 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 I suspect that he has a very low EF but this should be confirmed by obtaining and echocardiogram. * Regardless of whether or not he presents for an acute stroke, this patient has documentation of multiple prior strokes. These are likely embolic in etiology. Consideration needs to be given to a low EF being the nidus for thrombus or atrial fibrillation. It is not known, at present, if this patient had an atrial appendage ligation/resection in the setting of his prior surgery but, even so, this procedure is not known to be 100% reliable. I would begin chronic anticoagulation with Eliquis 2.5mg BID. Interogate his defibrillator to assess for paroxysms of atrial fibrillation did not show this dysrhythmia. Continue low dose aspirin at 81mg daily. * There is no evidence of decompensated CHF or myocardial ischemia at this time but some of his exercise intolerance may be related to a low flow state. Continue telemetry? Yes
[2018-06-18 15:02] VITALS: BP 112/64
[2018-06-18 22:18] VITALS: BP 110/54
--- NOTE | 2018-06-19 07:07 | PN- Housestaff ---
Subjective Follow-up For: TIA Complaints: no complaints Tele-Events Since Last Visit: no significant tele events notes, except for PVc Subjective: Patient was examined bed side and said he was doing fine Review of Systems Constitutional: Reports: see HPI. Denies: no symptoms. Cardiovascular: Reports: no symptoms. Respiratory: Reports: no symptoms. Gastrointestinal: Reports: no symptoms. Genitourinary: Reports: no symptoms. Musculoskeletal: Reports: no symptoms. Objective Last 24 Hrs of Vital Signs/I&O Vital Signs Date Time Temp Pulse Resp B/P B/P Pulse O2 O2 Flow FiO2 Mean Ox Delivery Rate 06/19 1440 98.4 80 20 132/76 94 06/19 0734 97.7 88 18 102/64 95 Room Air Physical Exam General Appearance: Alert, Oriented X3, Cooperative, No Acute Distress Cardiovascular: Regular Rate, No Murmurs Lungs: Clear to Auscultation, Normal Air Movement Abdomen: Normal Bowel Sounds, Soft, No Tenderness, No Hepatospenomegaly, No Masses Neurological: Normal Speech, Strength at 5/5 X4 Ext, Normal Tone, Sensation Intact Extremities: No Clubbing, No Cyanosis, No Edema, Normal Pulses, No Tenderness/ Swelling Assessment/Plan Assessment: Blood workup-hemoglobin 12.2, hematocrit 36.3, platelet 187, granulocyte 61.8, sodium 139, potassium 4.5, chloride 106, carbon dioxide 25, anion gap 8, BUN 51, creatinine 2.5, glucose 122, lactic acid 0.6, calcium 8.8, magnesium 2.1, total bilirubin 0.5, AST 32, ALT 39, alkaline phosphatase 62, troponin I 0.02, proBNP 4100, total protein 6.5, albumin 3.6, TSH 13, free T3 0.77, Assessment and plan- #Right ICA Stenosis: Doppler shows 50-79% stenosis. Could be responsible for patients symptoms #Dizziness and blurry vision - symptoms could be due to generalized cerebral hypoperfusion, symptoms not consistent with TIA/CVA. Patient has history of multiple prior strokes, likely to be embolic in etiology. Patient feels his symptoms have resolved. -Eliquis 2.5mg BID Pacemaker Device interrogation shows no evidence of atrial fibrillation. The patient's prior device interrogations have also never showed any evidence of atrial fibrillation. Hypothyroidism - TSH -17, t3-0.77, follow up on Thyroid profile #[place]: creatinine trending down. Possible etiology: hypoperfusion due to cardiac origin vs dehydration. Creatinine is trending down since admission -encourage PO hydration -continue to monitor renal function, if worsens consult nephrology #GERD -Start Omperazole 20mg Diet-heart healthy diet CODE STATUS-DNR/DNI Problem List: 1. Pre-syncope 2. Weakness Pain Ratin Pain Location: none Pain Goal: Remain pain free Pain Plan: none Tomorrow's Labs & Rationales: none
[2018-06-19 07:34] VITALS: BP 102/64
--- NOTE | 2018-06-19 10:24 | PN- Att Addend ---
Attending Addendum Attending Brief Note No new issues over the weekend. Patient looks better is at the bedside. The pacemaker was interrogated and seems to be working okay. Vital signs are stable no fever. No major changes on physical examination. Depending on cardiology's input today we may be able to start disposition plans.. Intake & Output 06/19 04006/18 1600 06/18 0400 06/17 1600 06/17 0400 Intake Total 120 120 400 120 900 360 Output Total 453 164 6536 Balance -280 120 -350 120 -100 360 Intake, Oral 120 120 400 120 900 360 Number 1 Bowel Movements Output, Urine 153 378 8226 Patient 165 lb 166 lb 172 lb Weight Weight Bed scale Measurement Method Laboratory Tests 06/18/18 0615: Anion Gap 7, Estimated GFR 27 L, BUN/Creatinine Ratio 20.4, TSH 18.900 H, Free T4 1.00 06/17/18 0635: Anion Gap 4 L, Estimated GFR 29 L, BUN/Creatinine Ratio 20.0, Magnesium 2.1, Troponin I 0.02 06/16/18 1254: Urine Color YEL, Urine Clarity CLEAR, Urine pH 6.0, Ur Specific [place] 1.020, Urine Protein 100 H, Urine Ketones NEG, Urine Nitrite NEG, Urine Bilirubin NEG, Urine Urobilinogen 0.2, Ur Leukocyte Esterase NEG, Ur Microscopic SEDIMENT EXAMINED, Urine RBC RARE, Urine WBC RARE, Ur Epithelial Cells RARE, Urine Mucus FEW, Urine Hemoglobin NEG, Urine Glucose NEG 06/16/18 1248: Troponin I 0.01 Vital Signs Date Time Temp Pulse Resp B/P B/P Pulse O2 O2 Flow FiO2 Mean Ox Delivery Rate 06/19 0734 97.7 88 18 102/64 95 Room Air 06/18 2218 98.6 76 20 110/54 94 06/18 1502 98.4 75 20 112/64 94 Room Air
--- NOTE | 2018-06-19 11:05 | ECHOCARDIOGRAM REPORT ---
LANE [facility]IN[facility] Age: 83 : 1935 Gender: M Exam Date: 06/18/2018 10:44 Exam Location: 1 [address] Ht (in): 71 Wt (lb): 170 BSA: 1.97 BP: 110 / 60 Ordering Physician: Roxana Naqvi MD Referring Physician: Riri Don MD Technologist: Roxanne Kirkland [facility] Room Number: 180-02 Indications: Chest pain Rhythm: Sinus Technical Quality: Fair FINDINGS Left Ventricle Normal size left ventricle. Hypokinetic inferior wall. Hypokinetic posterior wall. Mildly abnormal left ventricular ejection fraction estimated at 35-40%. Right Ventricle Normal right ventricular size and function. Right Atrium Normal right atrial size. Left Atrium Mild to moderate left atrial dilatation. Mitral Valve Mitral valve thickened. Moderate mitral annular calcification. Trace to mild mitral regurgitation. Aortic Valve Normally functioning prosthetic aortic valve. Bioprosthetic aortic valve. Tricuspid Valve Tricuspid valve not well visualized, grossly normal. Mild tricuspid regurgitation. Right ventricular systolic pressure estimated at 34 mmHg. Pulmonic Valve Structurally normal pulmonic valve. Mild pulmonic regurgitation. Pericardium No pericardial effusion. Great Vessels Normal size aortic root and proximal ascending aorta. CONCLUSIONS 1. A normally functioning bioprosthetic aortic valve is present 2. Mitral leaflet thickening is present with mild to moderate anular calcification and minimal to mild mitral insufficiency with mild to moderata left atrial enlargement. 3. There is no pericardial fluid detected. 4. The left ventricular chamber size is normal. There is hypokinesia of the inferoposterior, inferolateral and inferoapical segments with an ejection fraction of 35-40%. 5. Mild tricuspid and pulmonic insufficiency are present with no evidence of pulmonary hypertension. 6. Pacemaker wires are present in the right heart chambers. Riri Don M.D. (Electronically Signed) Final Date: 19 June 2018 11:05 MEASUREMENTS (Male / Female) Normal Values 2D ECHO LV Diastolic Diameter PLAX 4.9 cm 4.2 - 5.9 / 3.9 - 5.3 cm LV Systolic Diameter PLAX 3.9 cm 2.1 - 4.0 cm LV Fractional Shortening PLAX 20.4 % 25 - 46 % LV Ejection Fraction 2D Teich 41.6 % IVS Diastolic Thickness 1.2 cm LVPW Diastolic Thickness 1.2 cm LV Relative Wall Thickness 0.5 RV Internal Dim ED PLAX 2.6 cm 1.9 - 3.8 cm LVOT Diameter 2.0 cm Aortic Root Diameter 3.3 cm LA Systolic Diameter LX 5.0 cm 3.0 - 4.0 / 2.7 - 3.8 cm LA Volume 53.0 cm 18 - 58 / 22 - 52 cm DOPPLER AV Peak Velocity 229.0 cm/s AV Peak Gradient 21.0 mmHg AV Mean Velocity 167.0 cm/s AV Mean Gradient 13.0 mmHg AV Velocity Time Integral 46.5 cm LVOT Peak Velocity 93.2 cm/s LVOT Peak Gradient 3.5 mmHg LVOT Mean Velocity 63.5 cm/s LVOT Mean Gradient 2.0 mmHg LVOT Velocity Time Integral 18.3 cm LVOT Stroke Volume 57.5 cm AV Area Cont Eq vti 1.2 cm AV Area Cont Eq pk 1.3 cm MV Peak Velocity 112.0 cm/s MV Peak Gradient 5.0 mmHg MV Mean Velocity 59.4 cm/s MV Mean Gradient 2.0 mmHg Mitral E Point Velocity 75.0 cm/s Mitral A Point Velocity 112.0 cm/s Mitral E to A Ratio 0.7 MV PHT Velocity 86.0 cm/s MV Deceleration [place] 224.0 cm/s MV Pressure Half Time 115.2 ms MV Area PHT 1.9 cm MV Deceleration Time 235.0 ms TR Peak Velocity 252.0 cm/s TR Peak Gradient 25.4 mmHg Right Atrial Pressure 10.0 mmHg Pulmonary Artery Systolic Pressure 35.4 mmHg Right Ventricular Systolic Pressure 35.4 mmHg PV Peak Velocity 139.0 cm/s PV Peak Gradient 7.7 mmHg PV Mean Velocity 91.5 cm/s PV Mean Gradient 4.0 mmHg PV Velocity Time Integral 26.6 cm LV E' Lateral Velocity 13.2 cm/s Mitral E to LV E' Lateral Ratio 5.7 LV E' Septal Velocity 4.6 cm/s Mitral E to LV E' Septal Ratio 16.4
--- NOTE | 2018-06-19 11:30 | PN- Cardiology ---
Subjective Subjective: The patient appears to be doing well today. He denies any symptoms whatsoever. He notes that he has been out of bed and has had no further lightheadedness or dizziness. Spirits good today. Objective Vital Signs and I&Os Vital Signs Date Time Temp Pulse Resp B/P B/P Pulse O2 O2 Flow FiO2 Mean Ox Delivery Rate 06/19 0734 97.7 88 18 102/64 95 Room Air 06/18 2218 98.6 76 20 110/54 94 06/18 1502 98.4 75 20 112/64 94 Room Air Intake & Output 06/19 1600 06/19 0806/19 0000 06/18 1600 06/18 0806/18 0000 Intake Total 120 120 400 120 Output Total 400 750 Balance -280 120 -350 120 Intake, Oral 120 120 400 120 Output, Urine 400 750 Patient 165 lb 166 lb Weight Physical Exam: General Appearance: well developed/nourished, elderly white male, alert, awake, oriented Head: normal HEENT: Normal Neck: supple, JVP normal, carotid upstrokes normal bilaterally, no audible bruit , no masses or thyromegaly Respiratory: chest non-tender, clear to auscultation and percussion bilaterally Cardiovascular: regular rate/rhythm, normal S1, S2, 1-2/6 systolic murmur Abdomen: normal bowel sounds, soft, non-tender Extremities: normal inspection, no edema Vascular: Pulses are 2+ and equal bilaterally Neurologic: Grossly normal/nonfocal Current Medications: Current Medications Sig/Deni Start time Last Medication Dose Route Stop Time Status Admin Albuterol Sulfate 2 PUF Q4-6 PRN PRN 06/16 2345 AC INH Apixaban 2.5 MG BID 06/17 2100 AC 06/19 PO 0848 Aspirin 0 .STK-MED ONE 06/19 0904 DC PO Aspirin Buffered 325 MG DAILY 06/17 09 AC 06/19 PO 0848 Atorvastatin Calcium 80 MG 1700 06/17 1700 AC 06/18 PO 1524 Cyanocobalamin 1,000 MCG DAILY 06/17 09 AC 06/19 PO 0848 Furosemide 40 MG BID 06/17 09 AC 06/19 PO 0848 Multivitamins 1 TAB DAILY 06/17 09 AC 06/19 Therapeutic PO 0848 Omeprazole 20 MG DAILY AC 06/17 1726 AC 06/19 PO 0537 Sodium Bicarbonate 650 MG BID 06/17 900 AC 06/19 PO 0848 Tiotropium [place] 2 PUF DAILY 06/17 900 AC 06/19 INH 0848 Results Last 48 Hrs of Labs/Mics: Laboratory Tests 06/18/18614: Anion Gap 7, Estimated GFR 27 L, BUN/Creatinine Ratio 20.4, TSH 18.900 H, Free T4 1.00 Assessment/Plan Assessment/Plan Assessment: 1. Dizziness/presyncope 2. Ischemic cardiomyopathy 3. History of coronary artery disease, status post bypass surgery 4. Bioprosthetic aortic valve-function normally 5. History of prior stroke 6. Bilateral carotid artery plaque; more pronounced on the right side 7. Hypothyroidism Recommendations: -The patient appears to be doing well. -Ambulate with monitoring of blood pressure and heart rate -Device interrogation shows no evidence of atrial fibrillation. The patient's prior device interrogations have also never showed any evidence of atrial fibrillation. In view of this finding, and in view of the fact that he has known bilateral carotid disease, I do not see any reason to anticoagulate the patient at the present time. -Continue regular medication regimen - Continue telemetry? No
--- NOTE | 2018-06-19 14:14 | Discharge Summary ---
Visit Information Visit Dates Admission Date: 06/16/18 Discharge Date: 06/19/18 Hospital Course Course Attending Physician: Tarun Martin MD Primary Care Physician: Mario BOONE,Tarun Hospital Course: Patient is an 83-year-old male presents for evaluation of weakness, dizziness, blurry vision, fogging in eyes and chest tightness. Vital signs at the time of admission-temperature 98.0, pulse 81, respiratory rate 16, blood pressure 168/77, SPO2 96% on room air. Blood workup-hemoglobin 12.2, hematocrit 36.3, platelet 187, granulocyte 61.8, sodium 139, potassium 4.5, chloride 106, carbon dioxide 25, anion gap 8, BUN 51, creatinine 2.5, glucose 122, lactic acid 0.6, calcium 8.8, magnesium 2.1, total bilirubin 0.5, AST 32, ALT 39, alkaline phosphatase 62, troponin I 0.02, proBNP 4100, total protein 6.5, albumin 3.6, TSH 13, free T3 0.77, Assessment and plan- #Right ICA Stenosis: Doppler shows 50-79% stenosis. Could be responsible for patients symptoms #Dizziness and blurry vision - symptoms could be due to generalized cerebral hypoperfusion, symptoms not consistent with TIA/CVA. Patient has history of multiple prior strokes, likely to be embolic in etiology. Patient feels his symptoms have resolved. -Eliquis 2.5mg BID Pacemaker Device interrogation shows no evidence of atrial fibrillation. The patient's prior device interrogations have also never showed any evidence of atrial fibrillation. Hypothyroidism - TSH -17, t3-0.77, follow up on Thyroid profile #[place]: creatinine trending down. Possible etiology: hypoperfusion due to cardiac origin vs dehydration. Creatinine is trending down since admission -encourage PO hydration -continue to monitor renal function, if worsens consult nephrology #GERD -Start Omperazole 20mg Diet-heart healthy diet CODE STATUS-DNR/DNI Allergies: Coded Allergies: No Known Allergies (06/16/18) Disposition Summary Disposition Principal Diagnosis: TIA Additional Diagnosis: Atrial fibrillation [place] Discharge Disposition: home or self care Discharge Instructions General Discharge Information Code Status: Do Not Resucitate/Intubat Patient's Diet: regular, heart healthy Patient's Activity: as tolerated Follow-Up Instructions/Appts: follow up with media developer in 1 week follow up with PCP in 1 week Medications at Discharge Discharge Medications: Continue taking these medications: Aspirin (Ecotrin*) 325 MG TABLET.DR 1 Tablet ORAL DAILY Comments: Last Taken:06/19/18 Time:0900 Atorvastatin Calcium (Lipitor) 80 MG TABLET 1 Tablet ORAL DAILY Comments: Last Taken:06/18/18 Time:5PM Sacubitril/Valsartan (Entresto 24 MG-26 MG Tablet) 24 MG-26 MG TABLET 1 Tablet ORAL TWICE DAILY Furosemide (Furosemide) 40 MG TABLET 1 Tablet ORAL TWICE DAILY Comments: Last Taken:06/19/18 Time:0900 Sitagliptin Phosphate (Januvia) 50 MG TABLET 1 Tablet ORAL DAILY Multivitamin (Daily Multiple Vitamin) 1 EACH TABLET 1 Tablet ORAL DAILY Comments: Last Taken:06/19/18 Time:0900 Cyanocobalamin (Vitamin B-12) 1,000 MCG TABLET 1 Tablet ORAL DAILY Comments: Last Taken:06/19/18 Time:0900 Sodium Bicarbonate (Sodium Bicarbonate) 650 MG TABLET 1 Tablet ORAL TWICE DAILY Comments: Last Taken:06/19/18 Time:0900 Tiotropium [place] (Spiriva) 18 MCG CAP.W.DEV 1 Capsule Inhale through mouth DAILY Comments: Last Taken:06/19/18 Time:0900 Albuterol Sulfate (Proair Hfa) 90 MCG HFA.AER.AD 2 Puff Inhale through mouth EVERY 4-6 HOURS NEEDED as needed for SHORTNESS OF BREATH Copies To: Meenu BOONE,Buck Noel; Romy BOONE,Paul [place]; Mario BOONE,Robert Morton MD PHD, Gilbert York
[2018-06-19 14:40] VITALS: BP 132/76
== END 2018-06-19 14:40 | DRG 68 ==
LOC: ERH 09:01 → 1NO 14:17 → ERHI 14:17 → EDBEDREQSVC 15:17 → ENRESERV 16:24 → ENTRNSPT 17:13 → EDTRNSPT 17:25 → EDTRNSPTSTS 17:25 → CMPTRNSPT 17:47 → 1NO 18:10 → ENTRNSPT 06-19 14:12 → EDTRNSPTSTS 06-19 14:18 → EDTRNSPT 06-19 14:18 → CMPTRNSPT 06-19 14:26 → 1NO 06-19 14:40
PROVIDERS: Physician Assistant Medical
DX: I65.21 Occlusion and stenosis of right carotid artery (principal); J44.9 Chronic obstructive pulmonary disease, unspecified; I25.5 Ischemic cardiomyopathy; E11.22 Type 2 diabetes mellitus with diabetic chronic kidney disease; Z95.1 Presence of aortocoronary bypass graft; I12.9 Hypertensive chronic kidney disease with stage 1 through stage 4 chronic kidney disease, or unspecified chronic kidney disease; N18.9 Chronic kidney disease, unspecified; E78.5 Hyperlipidemia, unspecified; I25.10 Atherosclerotic heart disease of native coronary artery without angina pectoris; E03.9 Hypothyroidism, unspecified; Z66 Do not resuscitate; I25.2 Old myocardial infarction; G47.30 Sleep apnea, unspecified; K21.9 Gastro-esophageal reflux disease without esophagitis; Z85.820 Personal history of malignant melanoma of skin; Z79.84 Long term (current) use of oral hypoglycemic drugs; Z86.73 Personal history of transient ischemic attack (TIA), and cerebral infarction without residual deficits; Z95.3 Presence of xenogenic heart valve; Z95.0 Presence of cardiac pacemaker
CPT/HCPCS: 1NSP; 36415; 36592; 71046; 81001; 82436; 93005; 93010; 93306; J1644; J3490

== ENCOUNTER 2018-07-18 12:32 | Inpatient (IN) | payer OTHER ==
[~2018-07-18] VITALS: Ht 180.3 cm; Wt 78.9 kg
[~2018-07-18 12:32] MED LIST: ASPIRIN EC325 M2 PO; DAILY MULTIPLE1 EACH PO; ENTRESTO 24 MG1 EACH PO; FUROSEMIDE40 M1 PO; JANUVIA50 M1 PO; LIPITOR80 M1 PO; PROAIR HFA8.5 GM INH; SODIUM BICARBO650 M1 PO; SPIRIVA18 MCG INH; VITAMIN B-121000 MC3 PO
[2018-07-18 13:08] LABS: ABSOLUTE BASOPHIL COUNT 0 /CUMM (0.0-0.2); ABSOLUTE EOSINOPHIL COUNT 0.4 /CUMM (0.0-0.7); ABSOLUTE GRANULOCYTE CT 4.8 /CUMM (1.4-6.5); ABSOLUTE LYMPH COUNT 1.3 /CUMM (1.2-3.4); ABSOLUTE MONOCYTE COUNT 0.6 /CUMM (0.10-0.60); BASOPHIL % 0.3 % (0.0-2.0); EOSINOPHIL % 6.1 % (0-5); HEMATOCRIT 34.3 % (42-52); MEAN CORPUSCULAR HGB 29.8 PG (27.0-31.0); MEAN CORPUSCULAR HGB CONC 32.8 G/DL (33.0-37.0); MEAN CORPUSCULAR VOLUME 90.6 FL (80.0-94.0); MEAN PLATELET VOLUME 8.4 FL (7.4-10.4); PLATELET COUNT 163 /CUMM (130-400); RBC DISTRIBUTION WIDTH 15.1 % (11.5-14.5); RED BLOOD CELL CT 3.79 /CUMM (4.70-6.10); WHITE BLOOD CELL COUNT 7.2 /CUMM (4.8-10.8)
--- NOTE | 2018-07-18 13:47 | RADIOLOGY REPORT ---
EXAMINATION: XR CHEST CLINICAL INFORMATION: Chest pain, shortness of breath. COMPARISON: 06/16/2018 TECHNIQUE: 2 views of the chest were obtained. FINDINGS: The patient is status post median sternotomy. There is a left subclavian approach triple lead cardiac pacemaker in place. The cardiomediastinal silhouette is upper limits of normal in size, stable. The lungs are clear without consolidation, pleural effusion or pneumothorax. Diffuse osteopenia. IMPRESSION: No acute cardiopulmonary process.
--- NOTE | 2018-07-18 18:00 | ED CARDIAC/CP/PALPITATIONS ---
History of Present Illness General Chief Complaint: Chest Pain Stated Complaint: CP SOB SENT BY DR MARTIN Source: patient, family Exam Limitations: dementia Vital Signs & Intake/Output Vital Signs & Intake/Output Vital Signs Date Time Temp Pulse Resp B/P B/P Pulse O2 O2 Flow FiO2 Mean Ox Delivery Rate 07/19 1149 97.6 07/19 0711 98.0 88 20 148/80 97 ED Intake and Output 07/20 0000 07/19 1200 Intake Total 250 Output Total Balance 250 Intake, Oral 250 Patient 174 lb Weight Weight Reported by Patient Measurement Method Allergies Coded Allergies: No Known Allergies (06/16/18) Reconcile Medications Albuterol Sulfate (Proair Hfa) 90 MCG HFA.AER.AD 2 PUF INH Q4-6 PRN PRN SHORTNESS OF BREATH (Reported) Amiodarone (Cordarone) 200 MG TAB 0.5 TAB PO DAILY Heart rhythm (Reported) Aspirin (Ecotrin*) 325 MG TABLET.DR 1 TAB PO DAILY HEART HEALTH (Reported) Atorvastatin Calcium (Lipitor) 80 MG TABLET 1 TAB PO DAILY CHOLESTEROL ( Reported) Cyanocobalamin (Vitamin B-12) 1,000 MCG TABLET 1 TAB PO DAILY VITAMIN SUPPORT (Reported) Furosemide 40 MG TABLET 1 TAB PO BID WATER RETENTION (Reported) Levothyroxine Sodium 50 MCG TABLET 1 TAB PO DAILY Hypothyroidism (Reported) Metoprolol Tartrate (Lopressor) 50 MG TABLET 1 TAB PO DAILY Heart rate ( Reported) Multivitamin (Daily Multiple Vitamin) 1 EACH TABLET 1 TAB PO DAILY VITAMIN SUPPORT (Reported) Sacubitril/Valsartan (Entresto 24 MG-26 MG Tablet) 24 MG-26 MG TABLET 1 TAB PO BID HEART (Reported) Sitagliptin Phosphate (Januvia) 50 MG TABLET 1 TAB PO DAILY DIABETES ( Reported) Sodium Bicarbonate 650 MG TABLET 1 TAB PO BID SUPPLEMENT (Reported) Tiotropium [place] (Spiriva) 18 MCG CAP.W.DEV 1 CAP INH DAILY BREATHING PROBLEMS (Reported) Triage Note: 83 YO MALE TO TRIAGE FOR EVAL OF CHEST PAIN AND OCCASIONAL SOB. EKG IN PROGRESS. PT DENIES ANY PAIN AT THIS TIME, STATES "IT WAS GETTING TIGHT UP AND DOWN" Triage Nurses Notes Reviewed? yes HPI: 83 yo M with Hypertension, Hyperlipidemia, History of multiple CVA, Coronary disease,status post bovine aortic valve ( 11/03/2006),not on anticoagulation, status post CABG, s/p ICD/Pacemaker,, Chronic kidney disease, Type 2 diabetes, COPD presents to the ED with chest pain that occured just before presentation to the hospital. Patient states he had chest pain, upon further questioning, states that he was walking dog and she noticed she wash clutching chest and complaining of chest tightness. Patient also with sob, no sweats or nausea. No recent URI-like sx. No hemoptysis. + left leg swelling recently. 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 Of note, mentioned also that he stated he did not want to wake up,m demonstrating passive SI. Denies HI. Patient teary about this during conversation. Past History Travel History Traveled to [place] past 21 day No Medical History Any Pertinent Medical History? see below for history Neurological: CVA EENT: [place] Cardiovascular: AORTIC VALVE REPLACEMENT PACER Respiratory: CPAP Renal: KIDNEY ISSUES Endocrine: diabetes Cancer(s): SKIN MELANOMA History of MRSA: No History of VRE: No History of CDIFF: No Surgical History Surgical History: non-contributory, Cardiac Psychosocial History Who do you live with Spouse What is your primary language Mauritanian Tobacco Use: Never used Family History Hx Contributory? No Review of Systems Review of Systems Constitutional: Denies: chills, fever. Respiratory: Reports: short of breath. Denies: cough, hemoptysis. Cardiovascular: Reports: chest pain, peripheral edema. GI: Denies: abdominal pain. Musculoskeletal: Denies: no symptoms. Physical Exam Physical Exam General Appearance: no apparent distress, alert Head: atraumatic Respiratory: normal breath sounds, no respiratory distress, lungs clear Cardiovascular: regular rate/rhythm Extremities: swelling, no calf tenderness Core Measures ACS in differential dx? Yes CVA/TIA Diagnosis No Sepsis Present: No Sepsis Focused Exam Completed? No Progress Differential Diagnosis: aortic dissection, cholecystitis, CHF/pulm edema, myocarditis, pericarditis, pneumonia, unstable angina, V-fib/V-Tach Plan of Care: Orders Procedure Date/time Status THYROID STIMULATING HORMONE 07/19 626 Complete TOTAL TRIODOTHYROXINE 07/19 626 Complete FREE T4 07/19 626 Complete Discharge Patient 07/19 UNK Active Lab Add-on Test 07/19 UNK Active FingerStick- Glucose 07/19 UNK Active PSYCHIATRIC CONSULT 07/19 UNK Active Laboratory Tests 07/19/18 0626: Anion Gap 8, Estimated GFR 32 L, BUN/Creatinine Ratio 24.5, TSH 13.900 H, Free T4 1.20, Total T3 0.86 L, CBC w Diff NO MAN DIFF REQ, RBC 4.00 L, MCV 90.1, MCH 30.1, MCHC 33.4, RDW 15.2 H, MPV 9.0, Gran % 57.8, Lymphocytes % 25.1, Monocytes % 9.5 H, Eosinophils % 7.3 H, Basophils % 0.3, Absolute Granulocytes 4.3, Absolute Lymphocytes 1.9, Absolute Monocytes 0.7 H, Absolute Eosinophils 0.5, Absolute Basophils 0 Initial ED EKG: pacemaker rhythm Comments: patient admitted for cp observation given concerning story. Dimer +, sent du eto history of UL leg swelling. BL DVT negative. not hypoxic, not tachy. This was relayed to IP team as I coudl not scan due to [place]. Defer to their decision on need of VQ Sitter ordered in ED for SI. IP made aware of this. Departure Departure Disposition: STILL A PATIENT Condition: Stable Clinical Impression Primary Impression: Chest pain Secondary Impressions: Depression Referrals: Tarun Martin MD (PCP/Family) Departure Forms: Customer Survey General Discharge Information Admission Note Spoke With: Tarun Martin MD Documentation of Exam: Documentation of any treatments & extenuating circumstances including Concerns Regarding Discharge (functional status, medication knowledge or non-compliance, living conditions, etc.) that warrant an admission rather than observation: [ Chest pain in high risk patient that requires telemetry monitoring as patient is high risk for sudden cardiac , hypotension and disability due to the high liklihood of cardiac event. Also with multiple issues that preculde him from outpatient therapy including dementia and depression.] Critical Care Note Critical Care Note Critical Care Time: non-applicable Therapeutic (Theragran-M Vitamins Tabs) Tiotropium [place] 1 PUF DAILY 07/19 0900 AC (Spiriva) Heparin Sodium 5,000 UNIT Q8 07/19 0600 AC (Porcine) Sodium Bicarbonate 650 MG BID 07/18 2359 AC (Sodium Bicarb 325MG Tab) Non-Formulary 0 SEE ADMIN CRITERIA 07/18 2345 UNVr Medication (NON FORMULARY) Acetaminophen 650 MG Q6P PRN 07/18 2245 AC (Tylenol) Acetaminophen 1,000 MG Q6P PRN 07/18 2245 AC ([facility]) Laboratory Tests 07/18/18 1740: Troponin I 0.02, D-Dimer High Sensitivty 428 H 07/18/18 1625: Urine Opiates Screen < 100, Methadone Screen < 40, Barbiturate Screen < 60, Ur Phencyclidine Scrn < 6.00, Amphetamines Screen < 100, U Benzodiazepines Scrn < 85, Urine Cocaine Screen < 50, Urine Cannabis Screen < 5.00, Urine Color YEL, Urine Clarity CLEAR, Urine pH 7.0, Ur Specific [place] 1.015, Urine Protein 30 H, Urine Ketones NEG, Urine Nitrite NEG, Urine Bilirubin NEG, Urine Urobilinogen 0.2, Ur Leukocyte Esterase NEG, Ur Microscopic SEDIMENT EXAMINED, Urine RBC RARE , Urine WBC RARE, Ur Epithelial Cells RARE, Urine Bacteria RARE H, Urine Hemoglobin TRACE-INTACT H, Urine Glucose NEG 07/18/18 1257: Anion Gap 7, Estimated GFR 26 L, BUN/Creatinine Ratio 22.5, Glucose 210 H, Calcium 8.5, Total Bilirubin 0.4, AST 23, ALT 29, Alkaline Phosphatase 61, Troponin I 0.01, Total Protein 6.1 L, Albumin 3.4 L, Globulin 2.7, Albumin/ Globulin Ratio 1.3, CBC w Diff NO MAN DIFF REQ, RBC 3.79 L, MCV 90.6, MCH 29.8, MCHC 32.8 L, RDW 15.1 H, MPV 8.4, Gran % 67.0, Lymphocytes % 18.1 L, Monocytes % 8.5, Eosinophils % 6.1 H, Basophils % 0.3, Absolute Granulocytes 4.8, Absolute Lymphocytes 1.3, Absolute Monocytes 0.6, Absolute Eosinophils 0.4, Absolute Basophils 0, Serum Alcohol < 10.0 Initial ED EKG: pacemaker rhythm Rhythm Strip: no change Departure Departure Disposition: STILL A PATIENT Condition: Stable Clinical Impression Primary Impression: Chest pain Secondary Impressions: Depression Referrals: Tarun Martin MD (PCP/Family) Departure Forms: Customer Survey General Discharge Information Admission Note Spoke With: Tj Martin MD Documentation of Exam: Documentation of any treatments & extenuating circumstances including Concerns Regarding Discharge (functional status, medication knowledge or non-compliance, living conditions, etc.) that warrant an admission rather than observation: [ Chest pain in high risk patient that requires telemetry monitoring as patient is high risk for sudden cardiac , hypotension and disability due to the high liklihood of cardiac event. Also with multiple issues that preculde him from outpatient therapy including dementia and depression.]
--- NOTE | 2018-07-18 19:53 | ULTRASOUND REPORT ---
EXAMINATION: US TRIPLEX OF LOWER EXTREMITIES, BILATERAL CLINICAL INFORMATION: Swelling COMPARISON: None TECHNIQUE: Color-flow triplex imaging with spectral analysis and compression Doppler were performed on the lower extremities. FINDINGS: Respiratory variation, normal compression and augmented flow are noted throughout the lower extremities. The visualized common femoral vein, superficial femoral vein, profunda femoral vein, popliteal vein and midcalf peroneal and posterior tibial venous segments show no evidence of deep venous thrombosis. There is no Dash's cyst. IMPRESSION: No evidence of deep venous thrombosis involving the bilateral lower extremities.
--- NOTE | 2018-07-18 22:16 | History & Physical ---
Mika Huff 07/18/18 2215: General Information and HPI MD Statement: I have seen and personally examined LANE ESPINAL and documented this H& P. The patient is a 83 year old M who presented with a patient stated chief complaint of [exertional chest pain or shortness of breath]. Source of Information: patient, old records Exam Limitations: poor historian History of Present Illness: The patient is an 83-year-old gentleman with a past medical history significant for ischemic cardiomyopathy, coronary artery disease, CABG, AICD, bovine aortic valve, hypothyroidism, multiple TIA, CKD, GERD who presented to ED due to chief complaint of exertional chest pain and shortness of breath. On the time of presentation to ED he was accompanied by his . The patient is not a good historian, and he states that the reason he is here is that he has not been feeling well for a couple of days, and he was getting depressed. He has also been very uncomfortable with his pacemaker because he believes this is bulging out. He also mentions that he has been experiencing some difficulty with his memory and he cannot remember things. And this is the reason that he is feeling depressed. But he denies any intention to hurt himself. He also mentions that one reason that he feels depressed was because his was met with him due to forgetting things, which has now been resolved, since she understands the situation. The patient denies any type of chest pain, chest compression, chest tightness, shortness of breath, dizziness, lightheadedness, nausea, vomiting, sweating. When he presented to ED for long weight is , chief complaint was chest pain on exertion and occasional shortness of breath. We tried to call his to get more history but we will not available to reach her. He states that he has no shortness of breath while walking on cramps or climbing stairs, though he lives on the ground floor. He also has obstructive sleep apnea, and he has a CPAP machine at home to use but he has not been using it in the past year because he takes it off his face because of the tightness of the mask. His plasma center technician is Dr. Don. 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 Allergies/Medications Allergies: Coded Allergies: No Known Allergies (06/16/18) Home Med list Albuterol Sulfate (Proair Hfa) 90 MCG HFA.AER.AD 2 PUF INH Q4-6 PRN PRN SHORTNESS OF BREATH (Reported) Aspirin (Ecotrin*) 325 MG TABLET.DR 1 TAB PO DAILY HEART HEALTH (Reported) Atorvastatin Calcium (Lipitor) 80 MG TABLET 1 TAB PO DAILY CHOLESTEROL ( Reported) Cyanocobalamin (Vitamin B-12) 1,000 MCG TABLET 1 TAB PO DAILY VITAMIN SUPPORT (Reported) Furosemide 40 MG TABLET 1 TAB PO BID WATER RETENTION (Reported) Multivitamin (Daily Multiple Vitamin) 1 EACH TABLET 1 TAB PO DAILY VITAMIN SUPPORT (Reported) Sacubitril/Valsartan (Entresto 24 MG-26 MG Tablet) 24 MG-26 MG TABLET 1 TAB PO BID HEART (Reported) Sitagliptin Phosphate (Januvia) 50 MG TABLET 1 TAB PO DAILY DIABETES ( Reported) Sodium Bicarbonate 650 MG TABLET 1 TAB PO BID SUPPLEMENT (Reported) Tiotropium [place] (Spiriva) 18 MCG CAP.W.DEV 1 CAP INH DAILY BREATHING PROBLEMS (Reported) Compliance With Home Meds: UNKNOWN Past History Travel History Traveled to [place] past 21 day No Medical History Neurological: CVA EENT: [place] Cardiovascular: AORTIC VALVE REPLACEMENT PACER Respiratory: CPAP Renal: KIDNEY ISSUES Endocrine: diabetes Cancer(s): SKIN MELANOMA History of MRSA: No History of VRE: No History of CDIFF: No Surgical History Surgical History: non-contributory, Cardiac Review of Systems Review of Systems Constitutional: Reports: see HPI. Exam & Diagnostic Data Last 24 Hrs of Vital Signs/I&O Vital Signs Date Time Temp Pulse Resp B/P B/P Pulse O2 O2 Flow FiO2 Mean Ox Delivery Rate 07/19 0711 98.0 88 20 148/80 97 07/19 0015 97.7 76 20 146/62 97 Room Air 07/18 2022 97.7 77 18 168/95 98 Room Air 07/18 1512 Room Air 09/18 1512 97.5 75 18 170/84 99 Room Air 07/18 1245 98.7 74 18 135/89 96 Room Air Intake & Output 07/19 0800 07/19 0000 07/18 1600 Intake Total 250 Output Total Balance 250 Intake, Oral 250 Patient 174 lb 174 lb Weight Weight Reported by Patient Reported by Patient Measurement Method Physical Exam General Appearance Alert, Oriented X3, Cooperative, No Acute Distress Skin No Rashes Skin Temp/Moisture Exam: Warm/Dry Sepsis Skin Exam (color): Normal for Ethnicity HEENT Atraumatic, PERRLA, EOMI Neck Supple Cardiovascular Regular Rate, Normal S1, Normal S2 Lungs Clear to Auscultation, Normal Air Movement Abdomen Normal Bowel Sounds, Soft, No Tenderness Neurological Normal Speech, Normal Tone, Sensation Intact, Cranial Nerves 3-12 NL Extremities No Clubbing, No Cyanosis, No Edema, Normal Pulses Vascular Normal Pulses, Pulses Symmetrical Sepsis Peripheral Pulse Location: Dorsalis Pedis Sepsis Peripheral Pulse Exam: Normal Sepsis Cap Refill Exam: <2 Sec Last 24 Hrs of Labs/Jaswinder: Laboratory Tests 07/19/18 0626: Sodium Pending, Potassium Pending, Chloride Pending, Carbon Dioxide Pending, Anion Gap Pending, BUN Pending, Creatinine Pending, BUN/Creatinine Ratio Pending , CBC w Diff Pending, WBC Pending, RBC Pending, Hgb Pending, Hct Pending, MCV Pending, MCH Pending, MCHC Pending, RDW Pending, Plt Count Pending, MPV Pending 07/19/18 0159: Troponin I 0.02 07/18/18 1740: Troponin I 0.02, D-Dimer High Sensitivty 428 H 07/18/18 1625: Urine Opiates Screen < 100, Methadone Screen < 40, Barbiturate Screen < 60, Ur Phencyclidine Scrn < 6.00, Amphetamines Screen < 100, U Benzodiazepines Scrn < 85, Urine Cocaine Screen < 50, Urine Cannabis Screen < 5.00, Urine Color YEL, Urine Clarity CLEAR, Urine pH 7.0, Ur Specific [place] 1.015, Urine Protein 30 H, Urine Ketones NEG, Urine Nitrite NEG, Urine Bilirubin NEG, Urine Urobilinogen 0.2, Ur Leukocyte Esterase NEG, Ur Microscopic SEDIMENT EXAMINED, Urine RBC RARE , Urine WBC RARE, Ur Epithelial Cells RARE, Urine Bacteria RARE H, Urine Hemoglobin TRACE-INTACT H, Urine Glucose NEG 07/18/18 1257: Anion Gap 7, Estimated GFR 26 L, BUN/Creatinine Ratio 22.5, Glucose 210 H, Calcium 8.5, Total Bilirubin 0.4, AST 23, ALT 29, Alkaline Phosphatase 61, Troponin I 0.01, Total Protein 6.1 L, Albumin 3.4 L, Globulin 2.7, Albumin/ Globulin Ratio 1.3, CBC w Diff NO MAN DIFF REQ, RBC 3.79 L, MCV 90.6, MCH 29.8, MCHC 32.8 L, RDW 15.1 H, MPV 8.4, Gran % 67.0, Lymphocytes % 18.1 L, Monocytes % 8.5, Eosinophils % 6.1 H, Basophils % 0.3, Absolute Granulocytes 4.8, Absolute Lymphocytes 1.3, Absolute Monocytes 0.6, Absolute Eosinophils 0.4, Absolute Basophils 0, Serum Alcohol < 10.0 Assessment/Plan Assessment: The patient is an 83-year-old male with the past medical history significant for coronary artery disease with CABG, AICD, ischemic cardiomyopathy, bovine aortic valve, CKD, and multiple TIAs who was admitted to telemetry floor due to exertional chest pain and shortness of breath. Rule out ACS: The patient was reported to have exertional chest pain, and shortness of breath. He has an extensive history of cardiac disease, including CABG, ischemic cardiomyopathy. Plan: Serial EKGs and troponin, continuous cardiac monitoring, plasma center technician consult, sublingual nitroglycerin in case of cardiac chest pain As Ranked By This Provider Problem List: 1. Chest pain 2. Anemia 3. Depression Core Measures/Misc (07/17) Acute Coronary Syndrome ACS Diagnosis: No Congestive Heart Failure Congestive Heart Failure Diagnosis No Cerebrovascular Accident CVA/TIA Diagnosis: No VTE (View Protocol) VTE Risk Factors Age>40 No Mechanical VTE Prophylaxis d/t N/A MechProphylax Ordered No VTE Pharm Prophylaxis d/t NA PharmProphylax ordered Sepsis (View protocol) Sepsis Present: No If YES complete Sepsis Event Note If YES complete Sepsis Event Note Iris BOONE,Venita 07/19/18 0140: Core Measures/Misc (07/17) Sepsis (View protocol) If YES complete Sepsis Event Note If YES complete Sepsis Event Note Resident Review Statement Resident Statement: examined this patient, discussed with geotechnical intern, agreed with geotechnical intern, discussed with family, reviewed EMR data (avail), discussed with nursing , discussed with case mgmt, reviewed images, amended to note Other Findings: Patient is a 83 YO M with PMH ischemic cardiomyopathy, CAD status post CABG with AICD in place, bovine Aortic valve, Hypothyroidism, CKD, multiple TIA, GERD presented to ED along with his due to concerns of chest pain with exertion and occasional shortness of breath. Patient had been experiencing episodes of chest pain tightening up and down with exertion. He also found to have significant memory problems which makes him feel depressed although he denies any suicidal/homicidal ideation. His balance is a little bit off lately. His relationship with his has been strained due to his medical problems. The time of my interview patient denies any chest pain and couldn't recall any of his medications. Vital signs at presentation did show blood pressure 180/90 mmHg. Physical examination is remarkable for regular rate and rhythm with a possible diastolic murmur, no edema. Labs are unremarkable. Trop <0.01 --> 0.02. D-Dimer 428. CXR and lower extremity doppler are negative. Evaluation Patient might have been experiencing stable angina episodes with exertion. Patient had memory issues so not providing with adequate history. It is important to call and obtain better history. Plan Admit to Telemetry floor Chest pain - Rule out ACS chest pain on exertion. Signficant cardiac history. EKG is not very resourceful given paced rhythm. * serial EKG and troponin * SL nitro for symptomatic chest pain * Continue other cardiac medications. h/o CAD s/p CABG continue ASA 81mg, atrovastatin, sacubitril/valsartan, furosemide his home regimen. CKD continue bicarbonate DVT prophylaxis SC heparin Code status Full code -- per records DNR/DNI please confirm while is at bedside.
[2018-07-19 00:15] VITALS: BP 146/62
[2018-07-19 07:11] VITALS: BP 148/80
--- NOTE | 2018-07-19 07:21 | PN- Housestaff ---
Subjective Follow-up For: Chest pain Tele-Events Since Last Visit: Paced rhythm heart rate between 7580 with PVCs Subjective: No overnight events. Patient remained afebrile [place] and examined this morning. Patient denied chest pain, short of breath, nausea, vomiting, chill, fever, abdominal pain dysuria. Patient having advanced dementia and her reported depression. Patient has hard of hearing. Psychiatry evaluated the patient for depression and she recommended geriatric follow-up as patient having advanced dementia. She could not find any evidence of depression. Review of Systems Constitutional: Denies: chills, fever, weakness. EENTM: Reports: see HPI. Cardiovascular: Denies: chest pain, orthopena, palpitations. Respiratory: Denies: cough, orthopnea, sputum production, wheezing. Gastrointestinal: Denies: abdominal pain, constipation, diarrhea, nausea, vomiting. Genitourinary: Denies: discharge, dysuria, frequency. Musculoskeletal: Reports: see HPI. Neurological/Psychological: Reports: see HPI. Objective Last 24 Hrs of Vital Signs/I&O Vital Signs Date Time Temp Pulse Resp B/P B/P Pulse O2 O2 Flow FiO2 Mean Ox Delivery Rate 07/19 0711 98.0 88 20 148/80 97 07/19 0015 97.7 76 20 146/62 97 Room Air 07/18 2022 97.7 77 18 168/95 98 Room Air 07/18 1512 Room Air 07/18 1512 97.5 75 18 170/84 99 Room Air 07/18 1245 98.7 74 18 135/89 96 Room Air Intake & Output 07/19 1600 07/19 0800 07/19 0000 Intake Total 250 Output Total Balance 250 Intake, Oral 250 Patient 174 lb Weight Weight Reported by Patient Measurement Method Physical Exam General Appearance: Alert, Cooperative Skin Temp/Moisture Exam: Warm/Dry Sepsis Skin Exam (color): Normal for Ethnicity HEENT: Atraumatic, PERRLA, EOMI Neck: Supple Cardiovascular: Normal S1, Normal S2 Lungs: Clear to Auscultation Abdomen: Soft, No Tenderness Neurological: Normal Speech, Strength at 5/5 X4 Ext, Normal Tone Extremities: b/l pedal edema Assessment/Plan Assessment: 83 YO M with PMH ischemic cardiomyopathy, CAD status post CABG with AICD in place, bovine Aortic valve, Hypothyroidism, CKD, multiple TIA, GERD presented to ED along with his due to concerns of chest pain with exertion and occasional shortness of breath. Seeing patient on telemetry floor for following problems. Chest pain: -Possibly atypical his troponin and EKGs remain negative for any ischemic cardiac event. -On playground monitor there is no overnight arrhythmias or blocks. Just couple of PVCs and he remained in paced rhythm. -Continue aspirin -Per cardiology patient is stable cardiac lo and possibly no need for any playground monitor. History of ischemic cardiomyopathy and CAD status post CABG with AICD: -Continue Lasix 40 mg twice daily. -Continue on entresto -Continue amiodarone 100 mg daily -Continue metoprolol History of CKD -CKD stage III -His chronic kidney disease is stable -Keep following his renal function. -Continue bicarbonate 650 mg twice daily. History of hyperlipidemia: -Continue atorvastatin History of hypothyroidism: -Continue levothyroxine History of diabetes: -Type 2 diabetes -Patient was on sitagliptin outpatient. -Accu-Cheks DVT prophylaxis: Mechanical and subcutaneous heparin CODE STATUS: Full code Problem List: 1. Chest pain Pain Ratin Pain Location: none Pain Goal: Remain pain free Pain Plan: pain pathway Tomorrow's Labs & Rationales: none
[2018-07-19 08:43] LABS: ABSOLUTE BASOPHIL COUNT 0 /CUMM (0.0-0.2); ABSOLUTE EOSINOPHIL COUNT 0.5 /CUMM (0.0-0.7); ABSOLUTE GRANULOCYTE CT 4.3 /CUMM (1.4-6.5); ABSOLUTE LYMPH COUNT 1.9 /CUMM (1.2-3.4); ABSOLUTE MONOCYTE COUNT 0.7 /CUMM (0.10-0.60); BASOPHIL % 0.3 % (0.0-2.0); EOSINOPHIL % 7.3 % (0-5); GRANULOCYTE % 57.8 % (42.2-75.2); HEMATOCRIT 36.1 % (42-52); MEAN CORPUSCULAR HGB 30.1 PG (27.0-31.0); MEAN CORPUSCULAR HGB CONC 33.4 G/DL (33.0-37.0); MEAN CORPUSCULAR VOLUME 90.1 FL (80.0-94.0); PLATELET COUNT 162 /CUMM (130-400); RBC DISTRIBUTION WIDTH 15.2 % (11.5-14.5); WHITE BLOOD CELL COUNT 7.5 /CUMM (4.8-10.8)
--- NOTE | 2018-07-19 09:44 | Patient Discharge Instructions ---
Discharge Instructions General Discharge Information You were seen/treated for: Chest pain Watch for these problems: Chest pain, palpitation, nausea, vomiting, loss of consciousness, lightheadedness and dysuria. If you experience any of the symptoms please come to ED or call to your primary care physician. Special Instructions: Follow-up with your primary care physician in 1 week. 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 Follow-up with outpatient geriatric physician for neurocognitive disorder and advanced dementia. Follow Dr. Criselda Olea, call [phone] for appointment. Diet Recommended Diet: Heart Healthy Activity Activity Self Limited: Yes Acute Coronary Syndrome Inclusion Criteria At DC or during hospital stay patient has or had the following: ACS DIAGNOSIS No Discharge Core Measures Meds if any: Prescribed or Continued at Discharge Meds if any: NOT Prescribed or Continued at Discharge Congestive Heart Failure Inclusion Criteria At DC or during hospital stay patient has or had the following: CHF DIAGNOSIS No Discharge Core Measures Meds if any: Prescribed or Continued at Discharge Meds if any: NOT Prescribed or Continued at Discharge Cerebrovascular accident Inclusion Criteria At DC or during hospital stay patient has or had the following: CVA/TIA Diagnosis No Discharge Core Measures Meds if any: Prescribed or Continued at Discharge Meds if any: NOT Prescribed or Continued at Discharge Venous thromboembolism Inclusion Criteria VTE Diagnosis No VTE Type NONE VTE Confirmed by (Test) NONE Discharge Core Measures - Per Current guidelines, there needs to be overlap - treatment for the first 5 days of Warfarin therapy. - If discharged on Warfarin prior to 5 days of - overlap therapy, the patient will need to be - assessed for post discharge needs including - *Post discharge parental anticoagulation - *Warfarin and/or parental anticoagulation education - *Follow up date to check INR post discharge At least 5 days overlap therapy as Inpatient No Meds if any: Prescribed or Continued at Discharge Note: Overlap Therapy is Warfarin and Anticoagulant Meds if any: NOT Prescribed or Continued at Discharge
--- NOTE | 2018-07-19 10:14 | PN- Att Addend ---
Attending Addendum Attending Brief Note 83-year-old white male with many comorbidities. His called my office stating that the patient was having chest pain and was recommended that the patient comes to the ER for evaluation. He is also having memory problems and apparently might be a little depressed and making some comments to the . Patient denied any suicidal ideations when asked. Patient will be monitored will have serial cardiac enzymes will have serial EKGs telemetry will be seen by Dr. Don and also will have a psychiatric evaluation. Current Medications Sig/Deni Start time Last Medication Dose Route Stop Time Status Admin Acetaminophen 650 MG Q6P PRN 07/18 2245 AC PO Acetaminophen 1,000 MG Q6P PRN 07/18 2245 AC IV Aspirin Buffered 325 MG DAILY 07/19 09 AC 07/19 PO 0925 Atorvastatin Calcium 80 MG 1700 07/19 1700 AC PO Cyanocobalamin 1,000 MCG DAILY 07/19 900 AC 07/19 PO 0925 Furosemide 40 MG BID 07/19 09 AC 07/19 PO 0925 Heparin Sodium 5,000 UNIT Q8 07/19 06 AC 07/19 (Porcine) SC 0639 Influenza Virus 0.5 ML ONCE ONE 07/19 900 DC Vaccine IM 07/19 09 Multivitamins 1 TAB DAILY 07/19 900 AC 07/19 Therapeutic PO 0925 Sacubitril/Valsartan 1 TAB BID 07/19 09 AC 07/19 PO 0925 Sodium Bicarbonate 650 MG BID 07/18 2359 AC 07/19 PO 0924 Tiotropium [place] 1 PUF DAILY 07/19 09 AC 07/19 INH 0925 Laboratory Tests 07/19/18 0626: Anion Gap 8, Estimated GFR 32 L, BUN/Creatinine Ratio 24.5, TSH Pending, Free T4 1.20, CBC w Diff NO MAN DIFF REQ, RBC 4.00 L, MCV 90.1, MCH 30.1, MCHC 33.4, RDW 15.2 H, MPV 9.0, Gran % 57.8, Lymphocytes % 25.1, Monocytes % 9.5 H, Eosinophils % 7.3 H, Basophils % 0.3, Absolute Granulocytes 4.3, Absolute Lymphocytes 1.9, Absolute Monocytes 0.7 H, Absolute Eosinophils 0.5, Absolute Basophils 0 07/19/18 0159: Troponin I 0.02 07/18/18 1740: Troponin I 0.02, D-Dimer High Sensitivty 428 H 07/18/18 1625: Urine Opiates Screen < 100, Methadone Screen < 40, Barbiturate Screen < 60, Ur Phencyclidine Scrn < 6.00, Amphetamines Screen < 100, U Benzodiazepines Scrn < 85, Urine Cocaine Screen < 50, Urine Cannabis Screen < 5.00, Urine Color YEL, Urine Clarity CLEAR, Urine pH 7.0, Ur Specific [place] 1.015, Urine Protein 30 H, Urine Ketones NEG, Urine Nitrite NEG, Urine Bilirubin NEG, Urine Urobilinogen 0.2, Ur Leukocyte Esterase NEG, Ur Microscopic SEDIMENT EXAMINED, Urine RBC RARE , Urine WBC RARE, Ur Epithelial Cells RARE, Urine Bacteria RARE H, Urine Hemoglobin TRACE-INTACT H, Urine Glucose NEG 07/18/18 1257: Anion Gap 7, Estimated GFR 26 L, BUN/Creatinine Ratio 22.5, Glucose 210 H, Calcium 8.5, Total Bilirubin 0.4, AST 23, ALT 29, Alkaline Phosphatase 61, Troponin I 0.01, Total Protein 6.1 L, Albumin 3.4 L, Globulin 2.7, Albumin/ Globulin Ratio 1.3, CBC w Diff NO MAN DIFF REQ, RBC 3.79 L, MCV 90.6, MCH 29.8, MCHC 32.8 L, RDW 15.1 H, MPV 8.4, Gran % 67.0, Lymphocytes % 18.1 L, Monocytes % 8.5, Eosinophils % 6.1 H, Basophils % 0.3, Absolute Granulocytes 4.8, Absolute Lymphocytes 1.3, Absolute Monocytes 0.6, Absolute Eosinophils 0.4, Absolute Basophils 0, Serum Alcohol < 10.0 Vital Signs Date Time Temp Pulse Resp B/P B/P Pulse O2 O2 Flow FiO2 Mean Ox Delivery Rate 07/19 0711 98.0 88 20 148/80 97 We will also check his thyroid function tests again.
--- NOTE | 2018-07-19 10:16 | Cons- Psychiatry ---
Psychiatric Consult Date of Consult: 07/19/18 Reason for Consult: "depression" History of Present Illness: 83 yo male admitted with exertional chest pain. Medically NAD. Asked to see him as reported depression. The patient reports that his mood has been "fine". He reports that he is struggling with his memory. "I forget stuff and she [his ] gets aggravated ". Patient reports that he has been sleeping and eating well. He is not suicidal or homicidal. There are no psychotic symptoms. He lives with his reports that they recently argued about his forgetfulness. He is significantly older than her. Past psychiatric history: Denies Substance use history: Denies Family psychiatric history: Positive for alcohol dependence in his father Past medical history: Coronary artery disease, CABG, AICD, bovine aortic valve, hypothyroidism, CAD, multiple TIAs, CKD and GERD. Allergies: Coded Allergies: No Known Allergies (06/16/18) Current Medications: Med Acetaminophen 650 MG PO Q6P PRN 07/18/18 2245 Acetaminophen 1,000 MG IV Q6P PRN 07/18/18 2245 Aspirin Buffered 325 MG PO DAILY 07/19/18 0900 Atorvastatin Calcium 80 MG PO 1700 07/19/18 1700 Cyanocobalamin 1,000 MCG PO DAILY 07/19/18 0900 Furosemide 40 MG PO BID 07/19/18 0900 Heparin Sodium (Porcine) 5,000 UNIT SC Q8 07/19/18 0600 Multivitamins Therapeutic 1 TAB PO DAILY 07/19/18 0900 Sacubitril/Valsartan 1 TAB PO BID 07/19/18 0900 Sodium Bicarbonate 650 MG PO BID 07/18/18 2359 Tiotropium [place] 1 PUF INH DAILY 07/19/18 0900 Past History Past Medical History Neurological: CVA EENT: [place] Cardiovascular: AORTIC VALVE REPLACEMENT PACER Respiratory: CPAP Renal: KIDNEY ISSUES Endocrine: diabetes Cancer(s): SKIN MELANOMA Past Surgical History Surgical History: non-contributory, Cardiac Substance Abuse Treatment Comments: See HPI for psychiatric and substance abuse history is Assessment/Plan Mental Status Orientation: Current situation, Person, Place Mental Status Exam: The patient is a pleasant 83-year-old male with several tattoos. He was encountered sitting fully dressed by his hospital bed. He was alert and oriented. Gait was steady. Eye contact was good. Speech was normal in rate, rhythm, volume and tone. Mood was euthymic and affect was mood congruent. He was not suicidal or homicidal. Thought process was normal in tempo, stream and form. There was some confabulation. There were no delusions or obsessions. Attention and concentration were impaired. There was no perceptual abnormality. Impulse control was good. Mini-Mental state examination gave a score of 22 out of a possible 30. The patient lost 1 point in orientation to time, one point in registration, 3 points at 5 minute recall, one-point and attention and concentration, one point in writing a sentence at one point and 3 stage command. His drawing of a clock face was appropriate however when asked to place the hands at 1:50 he do them in an inverted V. Insight is good, he appreciates that he has memory difficulties and it is making him anxious. Judgment fair. Lab Results: Lab ALT 29 U/L 07/18/18 1257 AST 23 U/L 07/18/18 1257 Albumin 3.4 g/dL L 07/18/18 1257 Alkaline Phosphatase 61 U/L 07/18/18 1257 Anion Gap 8 07/19/18 0626 BUN 49 mg/dL H 07/19/18 0626 BUN/Creatinine Ratio 24.5 % 07/19/18 0626 Carbon Dioxide 27 mmol/L 07/19/18 0626 Chloride 105 mmol/L 07/19/18 0626 Creatinine 2.0 mg/dL H 07/19/18 0626 Estimated GFR 32 ml/min L 07/19/18 0626 Free T4 1.20 ng/dL 07/19/18 0626 Glucose 210 mg/dL H 07/18/18 1257 Potassium 4.7 mmol/L 07/19/18 0626 Sodium 141 mmol/L 07/19/18 0626 TSH 13.900 uIU/mL H 07/19/18 0626 Total Protein 6.1 g/dL L 07/18/18 1257 Troponin I 0.01 ng/ml 07/18/18 1257 Troponin I 0.02 ng/ml 07/18/18 1740 Troponin I 0.02 ng/ml 07/19/18 0159 Hct 36.1 % L 07/19/18 0626 Hgb 12.0 G/DL L 07/19/18 0626 MCH 30.1 PG 07/19/18 0626 MCHC 33.4 G/DL 07/19/18625 MCV 90.1 FL 07/19/18625 Plt Count 162 /CUMM 07/19/18625 RBC 4.00 /CUMM L 07/19/18625 RDW 15.2 % H 07/19/18625 WBC 7.5 /CUMM 07/19/18625 Diffential Diagnosis: -Major neurocognitive disorder of uncertain etiology. Possibly multi-infarct given his cardiac history. CT brain in May of this year showed mild to moderate diffuse volume loss as well as evidence of chronic microvascular ischemic changes. -No evidence of major depressive disorder -Note TSH of 13.9 with normal T4. T3 was low when tested in May. -BUN is elevated at 49. Impression: - Unspecified neirocognitive disorder - MMSE 22/30; volume loss and chronic microvascular changes evidenced on CT brain in May 2018. -Patient is dehydrated, hypothyroid. -No evidence of major depressive disorder. Provisional Treatment Plan: - No acute psychiatric intervention required at this time - Suggest workup for potentially reversible causes of dementia. - Suggest normalizing BUN and addressing thyroid deficit. -The patient would benefit from and is agreeable to referral to the memory clinic. To suggestions our geriatric psychiatry in [place] and [facility] in [place] but the patient's primary care doctor may be aware of other options. Psychiatry will sign off for now. Thank you for consulting us on this patient.
--- NOTE | 2018-07-19 10:40 | Cons- Cardiology ---
General Information and HPI Consulting Request Date of Consult: 07/19/18 Requested By: Tarun Martin MD Reason for Consult: Chest discomfort, mental status issues Source of Information: patient, old records Exam Limitations: poor historian History of Present Illness: The patient is an 83-year-old white male who is well-known to me. His past medical history is remarkable for ischemic cardiac myopathy, bioprosthetic aortic valve replacement, coronary artery disease status post bypass surgery, pacemaker/AICD, suboptimally treated hypothyroidism, prior TIAs, CKD, etc. Patient reportedly presented to the emergency room with a complaint of exertional chest discomfort and shortness of breath, however, at the present time, and per the previous notes, the patient denies having had any recent chest discomfort. Patient has multiple nonspecific complaints including issues with his pacemaker, memory issues, etc. As far as I can discern at the moment, he denies any specific cardiac complaints. Since admission, he has had no issues on the gambling monitor, his ECG is unchanged, and his serial troponins have been negative. Apparently, his also requested a psychiatric evaluation while the patient is here in the hospital. In addition, the patient has sleep apnea but has not been using his CPAP at home. Allergies/Medications Allergies: Coded Allergies: No Known Allergies (06/16/18) Home Med List: Albuterol Sulfate (Proair Hfa) 90 MCG HFA.AER.AD 2 PUF INH Q4-6 PRN PRN SHORTNESS OF BREATH (Reported) Aspirin (Ecotrin*) 325 MG TABLET.DR 1 TAB PO DAILY HEART HEALTH (Reported) Atorvastatin Calcium (Lipitor) 80 MG TABLET 1 TAB PO DAILY CHOLESTEROL ( Reported) Cyanocobalamin (Vitamin B-12) 1,000 MCG TABLET 1 TAB PO DAILY VITAMIN SUPPORT (Reported) Furosemide 40 MG TABLET 1 TAB PO BID WATER RETENTION (Reported) Multivitamin (Daily Multiple Vitamin) 1 EACH TABLET 1 TAB PO DAILY VITAMIN SUPPORT (Reported) Sacubitril/Valsartan (Entresto 24 MG-26 MG Tablet) 24 MG-26 MG TABLET 1 TAB PO BID HEART (Reported) Sitagliptin Phosphate (Januvia) 50 MG TABLET 1 TAB PO DAILY DIABETES ( Reported) Sodium Bicarbonate 650 MG TABLET 1 TAB PO BID SUPPLEMENT (Reported) Tiotropium [place] (Spiriva) 18 MCG CAP.W.DEV 1 CAP INH DAILY BREATHING PROBLEMS (Reported) Current Medications: Current Medications Sig/Deni Start time Last Medication Dose Route Stop Time Status Admin Acetaminophen 650 MG Q6P PRN 07/185 AC PO Acetaminophen 1,000 MG Q6P PRN 07/18 2245 AC IV Aspirin Buffered 325 MG DAILY 07/19 900 AC 07/19 PO 0925 Atorvastatin Calcium 80 MG 1700 07/19 1700 AC PO Cyanocobalamin 1,000 MCG DAILY 07/19 900 AC 07/19 PO 09 Furosemide 40 MG BID 07/19 900 AC 07/19 PO 0925 Heparin Sodium 5,000 UNIT Q8 07/19 06 AC 07/19 (Porcine) SC 0639 Influenza Virus 0.5 ML ONCE ONE 07/19 900 DC Vaccine IM 07/19 901 Multivitamins 1 TAB DAILY 07/19 900 AC 07/19 Therapeutic PO 09 Sacubitril/Valsartan 1 TAB BID 07/19 900 AC 07/19 PO 0925 Sodium Bicarbonate 650 MG BID 07/18 2359 AC 07/19 PO 0924 Tiotropium [place] 1 PUF DAILY 07/19 900 AC 07/19 INH 0925 Past History Travel History Traveled to [place] past 21 day No Medical History Blood Transfusion Hx: No Neurological: CVA EENT: [place] Cardiovascular: AORTIC VALVE REPLACEMENT PACER Respiratory: CPAP Renal: KIDNEY ISSUES Endocrine: diabetes Cancer(s): SKIN MELANOMA Surgical History Surgical History: non-contributory, Cardiac Psychosocial History Where Do You Live? Home Smoking Status: Former Smoker ECHO Results (as available) Date of last Echo 06/17/18 EF% 40 Report: CONCLUSIONS 1. A normally functioning bioprosthetic aortic valve is present 2. Mitral leaflet thickening is present with mild to moderate anular calcification and minimal to mild mitral insufficiency with mild to moderata left atrial enlargement. 3. There is no pericardial fluid detected. 4. The left ventricular chamber size is normal. There is hypokinesia of the inferoposterior, inferolateral and inferoapical segments with an ejection fraction of 35-40%. 5. Mild tricuspid and pulmonic insufficiency are present with no evidence of pulmonary hypertension. 6. Pacemaker wires are present in the right heart chambers. Exam & Diagnostic Data Vital Signs and I&O Vital Signs Date Time Temp Pulse Resp B/P B/P Pulse O2 O2 Flow FiO2 Mean Ox Delivery Rate 07/19 0711 98.0 88 20 148/80 97 07/19 0015 97.7 76 20 146/62 97 Room Air 07/18 2022 97.7 77 18 168/95 98 Room Air 07/18 1512 Room Air 07/18 1512 97.5 75 18 170/84 99 Room Air 07/18 1245 98.7 74 18 135/89 96 Room Air Intake & Output 07/19 1600 07/19 0800 07/19 0000 07/18 1600 07/18 0800 07/18 0000 Intake Total 250 Output Total Balance 250 Intake, Oral 250 Patient 174 lb 174 lb Weight Weight Reported by Patient Reported by Patient Measurement Method Physical Exam: General Appearance Alert, Oriented X3, Cooperative, No Acute Distress Skin normal HEENT Atraumatic, PERRLA, EOMI Neck Supple, JVP normal, carotid upstroke normal bilaterally Cardiovascular Regular Rate, Normal S1, Normal S2, 1/6 to 2/6 systolic ejection murmur Lungs Clear to Auscultation and percussion bilaterally; no chest wall tenderness present Abdomen Normal Neurological Normal/nonfocal Extremities No Clubbing, No Cyanosis, No Edema, Normal Pulses Vascular Normal Pulses bilaterally Labs/Jaswinder Results: Laboratory Tests 07/19 07/19 07/18 0626 0728 1740 Chemistry Sodium (137 - 145 mmol/L) 141 Potassium (3.5 - 5.1 mmol/L) 4.7 Chloride (98 - 107 mmol/L) 105 Carbon Dioxide (22 - 30 mmol/L) 27 Anion Gap (5 - 16) 8 BUN (9 - 20 mg/dL) 49 H Creatinine (0.7 - 1.2 mg/dL) 2.0 H Estimated GFR (>60 ml/min) 32 L BUN/Creatinine Ratio (7 - 25 %) 24.5 Troponin I (<0.11 ng/ml) 0.02 0.02 TSH (0.270 - 4.200 uIU/mL) 13.900 H Free T4 (0.85 - 1.93 ng/dL) 1.20 Coagulation D-Dimer High Sensitivty (0 - 243 ng/ml) 428 H Hematology CBC w Diff NO MAN DIFF REQ WBC (4.8 - 10.8 /CUMM) 7.5 RBC (4.70 - 6.10 /CUMM) 4.00 L Hgb (14.0 - 18.0 G/DL) 12.0 L Hct (42 - 52 %) 36.1 L MCV (80.0 - 94.0 FL) 90.1 MCH (27.0 - 31.0 PG) 30.1 MCHC (33.0 - 37.0 G/DL) 33.4 RDW (11.5 - 14.5 %) 15.2 H Plt Count (130 - 400 /CUMM) 162 MPV (7.4 - 10.4 FL) 9.0 Gran % (42.2 - 75.2 %) 57.8 Lymphocytes % (20.5 - 51.1 %) 25.1 Monocytes % (1.7 - 9.3 %) 9.5 H Eosinophils % (0 - 5 %) 7.3 H Basophils % (0.0 - 2.0 %) 0.3 Absolute Granulocytes (1.4 - 6.5 /CUMM) 4.3 Absolute Lymphocytes (1.2 - 3.4 /CUMM) 1.9 Absolute Monocytes (0.10 - 0.60 /CUMM) 0.7 H Absolute Eosinophils (0.0 - 0.7 /CUMM) 0.5 Absolute Basophils (0.0 - 0.2 /CUMM) 0 07/18 07/18 1625 1257 Chemistry Sodium (137 - 145 mmol/L) 142 Potassium (3.5 - 5.1 mmol/L) 4.6 Chloride (98 - 107 mmol/L) 108 H Carbon Dioxide (22 - 30 mmol/L) 28 Anion Gap (5 - 16) 7 BUN (9 - 20 mg/dL) 54 H Creatinine (0.7 - 1.2 mg/dL) 2.4 H Estimated GFR (>60 ml/min) 26 L BUN/Creatinine Ratio (7 - 25 %) 22.5 Glucose (65 - 99 mg/dL) 210 H Calcium (8.4 - 10.2 mg/dL) 8.5 Total Bilirubin (0.2 - 1.3 mg/dL) 0.4 AST (17 - 59 U/L) 23 ALT (21 - 72 U/L) 29 Alkaline Phosphatase (< 127 U/L) 61 Troponin I (<0.11 ng/ml) 0.01 Total Protein (6.3 - 8.2 g/dL) 6.1 L Albumin (3.5 - 5.0 g/dL) 3.4 L Globulin (1.9 - 4.2 gm/dL) 2.7 Albumin/Globulin Ratio (1.1 - 2.2 %) 1.3 Hematology CBC w Diff NO MAN DIFF REQ WBC (4.8 - 10.8 /CUMM) 7.2 RBC (4.70 - 6.10 /CUMM) 3.79 L Hgb (14.0 - 18.0 G/DL) 11.3 L Hct (42 - 52 %) 34.3 L MCV (80.0 - 94.0 FL) 90.6 MCH (27.0 - 31.0 PG) 29.8 MCHC (33.0 - 37.0 G/DL) 32.8 L RDW (11.5 - 14.5 %) 15.1 H Plt Count (130 - 400 /CUMM) 163 MPV (7.4 - 10.4 FL) 8.4 Gran % (42.2 - 75.2 %) 67.0 Lymphocytes % (20.5 - 51.1 %) 18.1 L Monocytes % (1.7 - 9.3 %) 8.5 Eosinophils % (0 - 5 %) 6.1 H Basophils % (0.0 - 2.0 %) 0.3 Absolute Granulocytes (1.4 - 6.5 /CUMM) 4.8 Absolute Lymphocytes (1.2 - 3.4 /CUMM) 1.3 Absolute Monocytes (0.10 - 0.60 /CUMM) 0.6 Absolute Eosinophils (0.0 - 0.7 /CUMM) 0.4 Absolute Basophils (0.0 - 0.2 /CUMM) 0 Toxicology Urine Opiates Screen (>2000 NG/ML) < 100 Methadone Screen (>300 NG/ML) < 40 Barbiturate Screen (>200 NG/ML) < 60 Ur Phencyclidine Scrn (>25 NG/ML) < 6.00 Amphetamines Screen (>1000 NG/ML) < 100 U Benzodiazepines Scrn (>200 NG/ML) < 85 Urine Cocaine Screen (>300 NG/ML) < 50 Urine Cannabis Screen (>50 NG/ML) < 5.00 Serum Alcohol (<10 MG/DL) < 10.0 Urines Urine Color (YEL,AMB,STR) YEL Urine Clarity (CLEAR) CLEAR Urine pH (5.0 - 8.0) 7.0 Ur Specific [place] (1.001 - 1.035) 1.015 Urine Protein (NEG,<30 MG/DL) 30 H Urine Ketones (NEG) NEG Urine Nitrite (NEG) NEG Urine Bilirubin (NEG) NEG Urine Urobilinogen (0.1 - 1.0 EU/dl) 0.2 Ur Leukocyte Esterase (NEG) NEG Ur Microscopic SEDIMENT EXAMINED Urine RBC (0 - 5 /HPF) RARE Urine WBC (0 - 2 /HPF) RARE Ur Epithelial Cells (NONE,FEW) RARE Urine Bacteria (NEG/NONE) RARE H Urine Hemoglobin (NEG) TRACE-INTACT H Urine Glucose (N MG/DL) NEG Diagnostic Data EKG Results Unchanged CXR Results FINDINGS: The patient is status post median sternotomy. There is a left subclavian approach triple lead cardiac pacemaker in place. The cardiomediastinal silhouette is upper limits of normal in size, stable. The lungs are clear without consolidation, pleural effusion or pneumothorax. Diffuse osteopenia. IMPRESSION: No acute cardiopulmonary process. Assessment/Plan Assessment/Plan Assessment: 1. Reported chest discomfort-at the moment, the patient denies any recent chest discomfort to me. His serial troponins have been negative and his ECG has been unchanged. 2. Memory issues/possible early dementia-psychiatric evaluation requested by family 3. Anemia 4. Hypothyroidism-please recheck labs 5. History of coronary disease, status post bypass surgery, ischemic cardiac myopathy 6. Indwelling pacemaker/A ICD 7. Chronic renal failure Commendations: -At the moment, I do not see any evidence of any acute cardiac issues. -Psychiatric evaluation pending -There is no reason to repeat the echocardiogram at the present time -In view of the reported history of recent chest discomfort, which the patient currently denies, we can arrange a pharmacologic nuclear stress test as outpatient to better clarify this issue. -I will discuss the situation further with the patient's when she is here today. Consult Acknowledgment - Thank you for your consult request.
[2018-07-19] MEDS ORDERED: LEVOTHYROXINE50 MCG PO (11:53)
[2018-07-19] MEDS ORDERED: AMIODARONE HCL200 M1 PO (11:53)
[2018-07-19] MEDS ORDERED: LOPRESSOR50 M1 PO (11:54)
== END 2018-07-19 13:50 | DRG 313 ==
LOC: ERH 12:32 → ERHI 21:57 → 1NO 21:57 → ENRESERV 22:36 → 1NO 23:28 → ENPENDDIS 07-19 12:09 → ENTRNSPT 07-19 13:28 → EDTRNSPTSTS 07-19 13:43 → EDTRNSPT 07-19 13:43 → 1NO 07-19 13:50 → CMPTRNSPT 07-19 13:53
PROVIDERS: Internal Medicine; Physician Assistant Medical
DX: R07.89 Other chest pain (principal); E78.5 Hyperlipidemia, unspecified; I25.10 Atherosclerotic heart disease of native coronary artery without angina pectoris; Z95.1 Presence of aortocoronary bypass graft; Z95.3 Presence of xenogenic heart valve; Z86.73 Personal history of transient ischemic attack (TIA), and cerebral infarction without residual deficits; Z95.810 Presence of automatic (implantable) cardiac defibrillator; J44.9 Chronic obstructive pulmonary disease, unspecified; E03.9 Hypothyroidism, unspecified; I25.5 Ischemic cardiomyopathy; I12.9 Hypertensive chronic kidney disease with stage 1 through stage 4 chronic kidney disease, or unspecified chronic kidney disease; N18.9 Chronic kidney disease, unspecified; G47.33 Obstructive sleep apnea (adult) (pediatric); Z91.19 Patient's noncompliance with other medical treatment and regimen; E11.22 Type 2 diabetes mellitus with diabetic chronic kidney disease; N18.3 Chronic kidney disease, stage 3 (moderate); Z79.84 Long term (current) use of oral hypoglycemic drugs; R41.9 Unspecified symptoms and signs involving cognitive functions and awareness; D64.9 Anemia, unspecified; K21.9 Gastro-esophageal reflux disease without esophagitis; Z79.51 Long term (current) use of inhaled steroids; Z66 Do not resuscitate; I49.3 Ventricular premature depolarization
CPT/HCPCS: 1NSP; 36592; 71046; 80307; 81001; 82436; 93005; 93010; 93970; G0480; J1644; Q2036